=== PATIENT | male | born 1980 | race Caucasian/White ===

== ENCOUNTER 2020-06-16 00:24 | Emergency (ER) | payer OTHER, SELFPAY ==
--- NOTE | ~2020-06-16 | XR_ITS ---
EXAMINATION: XR chest 1V portable 06/16/2020 01:21 INDICATION: Cough and congestion for 2 days PROCEDURE: Chest COMPARISON: No prior studies for comparison. FINDINGS: The lungs are clear. The cardiomediastinal silhouette is within normal limits. There are no pleural effusions. There is no pneumothorax suspected. IMPRESSION: 1: NO ACUTE CARDIOPULMONARY DISEASE. Reviewed, dictated and finalized at location A. LEAD
[2020-06-16 00:30] VITALS: BP 146/82; PULSE 108; RESP 20; TEMP 36.4; O2SAT 97
--- NOTE | 2020-06-16 00:46 | ED.URI ---
HPI - URI/Sore Throat General Chief Complaint: Upper Respiratory Infection Stated Complaint: chest congestion Time Seen by Provider: 06/16/20 00:27 Source: RN notes reviewed History of Present Illness HPI Narrative: Patient presents emergency department from home for upper respiratory infection. Patient states symptoms began 2 days ago. He states he had generalized myalgias with episodes of chills and subjective fever with sweating. States that those episodes lasted until this morning and have improved he states that today he has developed upper respiratory congestion with a cough that is been nonproductive as well as rhinorrhea he denies any sore throat chest pain shortness of breath abdominal pain nausea vomiting diarrhea or any other symptoms he states his evening became concerned because he thought his lips appeared blue in color states he does have a history of anxiety and has been anxious about Covid Related Data Allergies Allergy/AdvReac Type Severity Reaction Status Date / Time No Known Allergies Allergy Mild Unverified 06/16/20 00:45 Review of Systems Review of Systems: Narrative: Gen.: Denies fevers or chills Eyes: Denies eye pain or visual change ENT: Reports congestion Respiratory: Denies shortness of breath reports cough CV: Denies chest pain or palpitations GI: Denies abdominal pain nausea, emesis or diarrhea Musculoskeletal: Denies back pain or muscle pain Neuro: Denies numbness, tingling, weakness or focal weakness Skin: Denies rash Except as documented, all other systems reviewed and negative [facility] Past Medical History Medical History (Updated 06/16/20 @ 02:37 by Gil Villaseñor DO) Depression with anxiety Family History Family History Grandparent Acute myocardial infarction, Onset Age: 74 Family history unknown, Onset Age: 84 Mother Family history of chronic obstructive pulmonary disease Father Malignant neoplasm of prostate Social History Social History Smoking status: Never smoker Second hand tobacco smoke exposure: No Alcohol intake: current Exam Narrative: Exam Narrative: APPEARANCE: No acute distress, nontoxic, resting in bed EYES: EOMI HEENT: Normocephalic, atraumatic, bilateral turbinates boggy lips are normal in appearance RESPIRATORY: No respiratory distress Clear to auscultation bilaterally with no rhonchi wheezing or rales. CARDIOVASCULAR: Regular rate and rhythm without murmurs rubs or gallops. ABDOMINAL: Soft, nontender, nondistended, no rebound or guarding MUSCULOSKELETAl: Moves all extremities. No clubbing, cyanosis or edema. NEURO: Awake and alert. Following commands, speech normal, no focal deficits SKIN:: Warm, dry. No rashes lesions or abrasions PSYCHIATRIC: Normal affect/mood, Course Course Emergency Course: Discussed with patient results of workup and diagnosis. Discussed need for follow-up with primary care, proper use of medication, and reasons to return to the emergency department. Patient understands and agrees to current treatment plan Vital Signs Vital signs: Vital Signs Temperature 97.5 F L 06/16/20 00:30 Pulse Rate 108 H 06/16/20 00:30 Respiratory Rate 20 06/16/20 00:30 Blood Pressure 146/82 H 06/16/20 00:30 Pulse Oximetry 97 06/16/20 00:30 Temperature 97.5 F L 06/16/20 00:30 Pulse Rate 108 H 06/16/20 00:30 Respiratory Rate 20 06/16/20 00:30 Blood Pressure 146/82 H 06/16/20 00:30 Pulse Oximetry 97 06/16/20 00:30 MDM - URI/Sore Throat MDM Narrative Medical decision making narrative: Patient presents with upper respiratory infections symptoms for the past 3 days influenza swab negative in ED chest x-ray shows no acute process and patient with O2 sats on room air in the upper 90s Covid swab obtained will send home with inhaler with follow-up as an outpatient Lab Data Labs: Lab Results 06/16
[2020-06-16 02:36] VITALS: BP 140/87; PULSE 89; RESP 22; O2SAT 98
[2020-06-16 16:41] LABS: SARS-CoV-2 RNA PCR Negative
== END 2020-06-16 02:50 | disposition home or self-care (01) ==
PROVIDERS: Emergency Provider Emergency Medicine; PCP Internal Medicine
DX: R05 Cough (principal); R09.89 Other specified symptoms and signs involving the circulatory and respiratory systems; Z20.828 Contact with and (suspected) exposure to other viral communicable diseases
CPT/HCPCS: 71045; 87635; 87804; 99283; C9803; U0003

== ENCOUNTER 2020-09-19 08:03 | Emergency (ER) | payer OTHER, SELFPAY ==
[2020-09-19 08:11] VITALS: BP 145/82; PULSE 87; RESP 20; TEMP 36.3; O2SAT 100
--- NOTE | 2020-09-19 08:21 | ED.MALEGU ---
HPI - Male Genitourinary General Chief complaint: Urogenital-Male Stated complaint: URINARY URGENCY/BLOOD IN URINE Time Seen by Provider: 09/19/20 08:20 Source: patient and RN notes reviewed Mode of arrival: ambulatory Limitations: no limitations History of Present Illness HPI Narrative: 40-year-old male presents with concern for hematuria, urgency, frequency. Reports burning pain at the tip of his penis. Reports cloudy urine. Reports one episode of mild abdominal pain overnight. He reports symptoms started around midnight. Reports he took Tylenol which mildly relieved the symptoms. He denies testicular swelling, pain, redness. Denies fever, malaise, chills, sweats, current abdominal pain, flank pain. Denies any history of similar problems MD Complaint: other (urgency) Related Data Allergies Allergy/AdvReac Type Severity Reaction Status Date / Time No Known Allergies Allergy Mild Unverified 09/19/20 08:14 Review of Systems Review of Systems: Narrative: CONSTITUTIONAL: Denies malaise, chills, sweats, or fever. CARDIOVASCULAR: Denies chest pain, palpitations, or edema. RESPIRATORY: Denies cough or dyspnea. GASTROINTESTINAL: Denies abdominal pain, nausea, vomiting, diarrhea, bloody, or mucous stools. GENITOURINARY: Reports dysuria frequency, urgency, hematuria, urethral burning without voiding. MUSCULOSKELETAL: Denies back pain, joint pain, or myalgia. NEUROLOGIC: Denies headache. All systems reviewed & are unremarkable except as noted in HPI and below PMFSH Past Medical History Medical History (Updated 09/19/20 @ 08:30 by Mattie Giron NP) Depression with anxiety Family History Family History Grandparent Acute myocardial infarction, Onset Age: 74 Family history unknown, Onset Age: 84 Mother Family history of chronic obstructive pulmonary disease Father Malignant neoplasm of prostate Social History Social History Smoking status: Never smoker Second hand tobacco smoke exposure: No Alcohol intake: current Comments At time of signature, agree with nursing past medical, surgical, social and family history. There is no relevant family history pertinent to the presenting complaint Exam Narrative: Exam Narrative: GENERAL: Well-appearing, well-nourished, and in no acute distress. HEAD: Normocephalic. EYES: PERRLA, conjunctivae clear. NECK: Supple. CHEST: Speaks in full sentences. No respiratory distress. HEART: Regular rate and rhythm. SKIN: Warm, dry NEURO: Alert and oriented x3. PSYCH: Normal mood and affect Course Course Emergency Course: Patient is aware of diagnosis, understands and agrees to treatment plan. Anticipatory guidance given. Patient agrees to follow-up as directed and is aware of reasons to seek care at the emergency department. Portions of this record may have been created with voice recognition software Vital Signs Vital signs: Vital Signs Temperature 97.4 F L 09/19/20 08:11 Pulse Rate 87 09/19/20 08:11 Respiratory Rate 20 09/19/20 08:11 Blood Pressure 145/82 H 09/19/20 08:11 Pulse Oximetry 100 09/19/20 08:11 Temperature 97.4 F L 09/19/20 08:11 Pulse Rate 87 09/19/20 08:11 Respiratory Rate 20 09/19/20 08:11 Blood Pressure 145/82 H 09/19/20 08:11 Pulse Oximetry 100 09/19/20 08:11 Reviewed. Pt has been instructed to follow up with his primary care provider within the next week regarding his elevated blood pressure today. MDM - Male Genitourinary MDM Narrative Medical decision making narrative: Exam findings and UA show no acute concerns or changes; patient is non-toxic appearing and is in no distress. Patient is appropriate for outpatient treatment and follow-up. Differential Diagnosis Differential diagnosis: Likely urinary tract infection, urethritis, epididymitis and prostatitis Lab Data Labs: Urine Glucose
== END 2020-09-19 08:35 | disposition home or self-care (01) ==
PROVIDERS: Emergency Provider Nurse Practitioner; PCP Internal Medicine
DX: N41.0 Acute prostatitis (principal)
CPT/HCPCS: 81003; 87086; 99213; G0463

== ENCOUNTER 2020-09-30 11:12 | Outpatient (CLI) | payer OTHER, SELFPAY | END 2020-09-30 11:13 | disposition home or self-care (01) | LOC: ANHCOVIDVC 11:12 | PROVIDERS: PCP Internal Medicine | DX: Z23 Encounter for immunization (principal) | CPT/HCPCS: 0001A; 91300 ==

== ENCOUNTER 2020-10-21 11:14 | Outpatient (CLI) | payer OTHER, SELFPAY | END 2020-10-21 11:15 | disposition home or self-care (01) | LOC: ANHCOVIDVC 11:14 | PROVIDERS: PCP Internal Medicine | DX: Z23 Encounter for immunization (principal) | CPT/HCPCS: 0002A; 91300 ==

== ENCOUNTER 2020-12-06 08:58 | Emergency (ER) | payer OTHER, SELFPAY ==
[2020-12-06 09:39] VITALS: BP 124/69; PULSE 88; RESP 16; TEMP 36.5; O2SAT 98
--- NOTE | 2020-12-06 10:03 | ED.WOUNDLAC ---
HPI - Wound/Laceration General Chief Complaint: Wound/Laceration Stated Complaint: Thigh Lac Time Seen by Provider: 12/06/20 10:03 Source: patient Mode of arrival: ambulatory Limitations: no limitations History of Present Illness HPI narrative: Mychal Holly is a 40 yo male with GERD who comes to [facility] with a right thigh wound from dropping X-Acto knife on leg and right knee was swollen this morning. He did not wash the cut at the time and said bleeding stopped in a couple minutes -today he has some thigh pain distal to the entry point but there is no induration; he also is in need of a tetanus shot Related Data Allergies Allergy/AdvReac Type Severity Reaction Status Date / Time No Known Allergies Allergy Mild Unverified 09/19/20 08:14 Review of Systems Review of Systems: Narrative: CONSTITUTIONAL: Denies fever, chills, sweats. EYES: Denies visual changes, redness, discharge. ENT: Denies rhinorrhea, congestion, sore throat, otalgia. CARDIOVASCULAR: Denies chest pain, palpitations, edema. RESPIRATORY: Denies dyspnea, wheezing, cough GASTROINTESTINAL: Denies abdominal pain, nausea, vomiting, diarrhea. GENITOURINARY: Denies dysuria, hematuria, abnormal discharge SKIN: Denies rash or itching. Wound on right thigh from X-Acto knife, right knee swelling NEUROLOGIC: Denies numbness, or focal weakness. PSYCHIATRIC: Denies anxiety or depression. PMFSH Past Medical History Medical History Depression with anxiety Family History Family History Grandparent Acute myocardial infarction, Onset Age: 74 Family history unknown, Onset Age: 84 Mother Family history of chronic obstructive pulmonary disease Father Malignant neoplasm of prostate Social History Social History Smoking status: Never smoker Second hand tobacco smoke exposure: No Alcohol intake: never Substance use: never Substance use type: does not use Spiritual care concerns: No Comments At time of signature, I agree with nursing past medical, surgical, social and family history. There is no relevant family history pertinent to the presenting complaint. Exam Narrative: Exam Narrative: GENERAL: This is a well-nourished, well-developed patient, in mild distress. HEAD: normocephalic, atraumatic. EYES: PERRL. Sclera clear/white. Vision is grossly intact. EARS: External ears normal. Hearing grossly intact. NOSE: External nose normal without nasal discharge, nares without redness, no rhinorrhea. THROAT: Mucous membranes moist, NECK: Neck supple, non-tender CARDIOVASCULAR: Regular rate and rhythm without murmurs, gallops, or rubs. RESPIRATORY: Clear to auscultation. Breath sounds equal bilaterally. No wheezes, rales, or rhonchi. GASTROINTESTINAL: Abdomen soft, SKIN: warm, intact with no suspicious lesions or rash, good texture and turgor. Small less than a centimeter superficial cut to the right leg with no induration but complaining of leg pain distal to the entry, good pulses good flexion extension of the leg NEURO: awake, alert, and oriented to person, place and time. There were no obvious focal neurologic abnormalities. Steady gait EXTREMITIES: Normal range of motion. BACK: Nontender without deformity Course Course Emergency Course: Patient comes to [facility] after dropping his XKnife on leg while doing a hobby last night he did not wash it immediately and is in need of tetanus booster Started on Keflex as well as given tetanus Vital Signs Vital signs: Vital Signs Temperature 97.7 F 12/06/20 09:39 Pulse Rate 88 12/06/20 09:39 Respiratory Rate 16 12/06/20 09:39 Blood Pressure 124/69 12/06/20 09:39 Pulse Oximetry 98 12/06/20 09:39 Temperature 97.7 F 12/06/20 09:39 Pulse Rate 88 12/06/20 09:39 Respiratory Rate 16 12/06/20 09:39
[2020-12-06] MEDS: TETANUS,DIPHTHERIA,AC PERTUSSIS ADULT (0.5 ML) BOOSTRIX IM (10:17)
== END 2020-12-06 10:24 | disposition home or self-care (01) ==
PROVIDERS: Emergency Provider Nurse Practitioner; PCP Internal Medicine
DX: S70.311A Abrasion, right thigh, initial encounter (principal); W26.0XXA Contact with knife, initial encounter; Z23 Encounter for immunization
CPT/HCPCS: 90471; 90715; 99213; G0463

== ENCOUNTER 2020-12-09 22:39 | Emergency (ER) | payer OTHER, SELFPAY ==
--- NOTE | ~2020-12-09 | US_ITS ---
EXAMINATION: US scrotum doppler DATE: 12/10/2020 00:13 INDICATION: Left scrotal pain TECHNIQUE: Testicular sonogram utilizing grayscale and Doppler COMPARISON: None. FINDINGS: The right testis measures 3.9 x 2.2 x 2.8 cm. The left testis measures 3.5 x 2.1 x 2.6 cm. There is normal vascular flow to both testes. The right epididymis is normal with normal vascular shen w. The left epididymis is normal with normal vascular flow. There is no varicocele or hydrocele. IMPRESSION: 1. No sonographic correlate for the patient's symptoms. Reviewed, dictated and finalized at location A.
--- NOTE | ~2020-12-09 | CT_ITS ---
EXAMINATION: CT abdomen pelvis wo con DATE: 12/09/2020 23:26 INDICATION: Groin and testicular pain TECHNIQUE: Computed tomography (CT) of the abdomen and pelvis was performed without intravenous contr ast. The dose-length product (DLP) was 1468.67 mGy-cm. Automated exposure control and iterative recon struction technique were employed. COMPARISON: 09/04/2008 FINDINGS: Calcified pulmonary nodules and calcified right hilar lymph nodes are consistent with old g ranulomatous disease. The heart size is normal. There is chronic mild atelectasis of the right lower lobe. Punctate calcifications in otherwise normal appearing liver and spleen likely represent healed granulomatous disease. The pancreas, gallbladder, and adrenal glands are normal. There is a 7 mm cyst of the right kidney. A 7 mm hemorrhagic cyst is present in the lower pole of the right kidney the le ft kidney is unremarkable. No pathologically enlarged abdominal or pelvic lymph nodes are identified. There is no free intraperitoneal gas or evidence of bowel obstruction. There is a 2 mm calcification in the left posterolateral aspect of the bladder. There is a tiny fat-containing umbilical hernia. M ild lumbar spondylosis is noted. The appendix is normal. IMPRESSION: 1. 2 mm calcification in the urinary bladder which could reflect recently passed stone. Reviewed, dictated and finalized at location A. IMPRESSION: 1. 2 mm calcification in the urinary bladder which could reflect recently passe d stone.
[2020-12-09 22:41] VITALS: BP 129/84; PULSE 83; RESP 16; TEMP 36.3; O2SAT 98
--- NOTE | 2020-12-09 23:14 | ED.GENADULT ---
HPI - General Adult General Chief complaint: Unspecified Stated complaint: testicle pain Time Seen by Provider: 12/09/20 23:09 Source: patient Mode of arrival: ambulatory Limitations: no limitations History of Present Illness HPI narrative: Patient is a 40-year-old male complaining of left testicular pain, intermittent, 5 out of 10 that started today. Patient denies any trauma to the area. Patient denies any swelling or redness to the area. Patient denies any urinary symptoms, fever or chills. Related Data Allergies Allergy/AdvReac Type Severity Reaction Status Date / Time No Known Allergies Allergy Mild Unverified 12/09/20 22:48 Review of Systems Review of Systems: All systems reviewed & are unremarkable except as noted in HPI and below Constitutional: Constitutional: Denies body ache(s), Denies chills, Denies excessive sweating, Denies fatigue, Denies fever(s), Denies headache(s), Denies lethargy, Denies malaise, Denies weakness and Denies weight loss Eyes: Eyes: Denies blurry vision, Denies change in vision and Denies loss of vision ENT: Denies dizziness, Denies ear discharge, Denies headache(s), Denies lip swelling, Denies epistaxis, Denies nasal congestion, Denies neck pain, Denies throat swelling and Denies tongue swelling Cardiovascular: Cardiovascular: Denies chest pain, Denies chest pain at rest, Denies chest pain with activity, Denies diaphoresis, Denies rapid heart rate, Denies edema, Denies irregular heart rhythm, Denies lightheadedness, Denies palpitations, Denies dyspnea and Denies dyspnea on exertion Respiratory: Respiratory: Denies chest congestion, Denies cough, Denies hemoptysis, Denies dyspnea and Denies dyspnea on exertion Gastrointestinal: Gastrointestinal: Denies abdominal pain, Denies melena, Denies hematochezia, Denies diarrhea, Denies nausea, Denies vomiting and Denies hematemesis Musculoskeletal: Musculoskeletal: Denies abnormal gait, Denies deformity, Denies joint swelling, Denies limited range of motion, Denies neck pain and Denies numbness Neurologic: Denies Abnormal speech present, Denies abnormal gait, Denies confusion, Denies dizziness, Denies headache(s), Denies focal weakness, Denies loss of vision, Denies numbness, Denies Other visual disturbances, Denies Sensory deficit (Neuro) and Denies weakness Psychiatric: Psychiatric: Denies confusion, Denies depression, Denies auditory hallucinations, Denies homicidal ideation and Denies suicidal ideation Endocrine: Endocrine: Denies cold intolerance, Denies excessive sweating, Denies fatigue, Denies heat intolerance and Denies palpitations Hematologic/Lymphatic: Hematologic/Lymphatic: Denies easy bleeding and Denies easy bruising Allergic/Immunologic: Allergic/Immunologic: Denies lip swelling, Denies throat swelling and Denies tongue swelling PMFSH Past Medical History Medical History Depression with anxiety Family History Family History Grandparent Acute myocardial infarction, Onset Age: 74 Family history unknown, Onset Age: 84 Mother Family history of chronic obstructive pulmonary disease Father Malignant neoplasm of prostate Social History Social History Smoking status: Never smoker Second hand tobacco smoke exposure: No Alcohol intake: never Substance use: never Substance use type: does not use Spiritual care concerns: No Exam Const: General: cooperative, healthy appearing, comfortable, no acute distress, well developed, alert and awake; No confusion Orientation/consciousness: oriented to person, oriented to place, oriented to time, patient oriented x3 and No confusion Limitations: no limitations HENMT: Head: normal to inspection, normocephalic and atraumatic Ears: hearing grossly normal bilaterally, TM normal on the right and TM normal on t
[2020-12-10 00:08] LABS: Basophils Absolute Auto 0.1 K/mm3 (0.0-0.1); Basophils Percent Auto 0.7 % (0.2-1.2); Eosinophils Absolute Auto 0.2 K/mm3 (0-0.3); Eosinophils Percent Auto 2.3 % (0-4.4); Hematocrit 43.7 % (42.0-52.0); Hemoglobin 14.6 g/dL (14.0-18.0); Immature Granulocyte Absolute 0.03 K/mm3 (0.00-0.031); Immature Granulocyte Percent A 0.3 % (0-0.5); Lymphocytes Absolute Auto 2.39 K/mm3 (0.9-3.2); Lymphocytes Percent Auto 26.4 % (18.3-44.2); Mean Corpuscular HGB Conc 33.4 g/dl (32-36); Mean Corpuscular Hemoglobin 26.2 pg (26-34); Mean Corpuscular Volume 78.5 fl (80-100); Mean Platelet Volume 11.9 fl (7.4-10.4); Monocytes Absolute Auto 0.6 K/mm3 (0.1-0.6); Monocytes Percent Auto 6.5 % (2.6-8.5); Neutrophils Absolute Auto 5.8 K/mm3 (1.3-6.7); Neutrophils Percent Auto 63.8 % (45.5-73.1); Platelet Count Result 297 k/mm3 (150-375); Red Blood Count 5.57 M/mm3 (4.6-6.20); Red Cell Distribution Width 16.4 % (11.5-14.5)
[2020-12-10 00:09] LABS: Add Urine Microscopic? NO; Appearance Urine Clear (Clear); Bilirubin Urine Negative (Negative); Blood Urine Negative (Negative); Color Urine Yellow (Yellow); Glucose Urine UA Negative (Negative); Ketones Urine Negative (Negative); Leukocyte Esterase Ur Negative LEU/UL (Negative); Nitrate Urine Negative (Negative); Protein Urine Negative (Negative); Specific Grav Ur 1.013 (1.001-1.035); Urobilinogen Urine Negative mg/dL (<2.0)
[2020-12-10 00:22] LABS: Anion Gap 10 mmol/L (8-16); Blood Urea Nitrogen 13 mg/dL (9-20); Calcium 9.4 mg/dL (8.4-10.2); Carbon Dioxide 24 mmol/L (22-30); Chloride 106 mmol/L (98-107); Estimated CRCL calculation 123 ml/min; Estimated Glomerular Filt Rate > 60; Glucose 82 mg/dL (75-110); Sodium 140 mmol/L (137-145)
[2020-12-10 00:29] VITALS: BP 128/78; PULSE 88; RESP 18; O2SAT 100
[2020-12-10 00:56] VITALS: BP 126/78; RESP 20; O2SAT 100
--- NOTE | 2020-12-11 04:03 | ED.GENADULT ---
HPI - General Adult General Chief complaint: Unspecified Stated complaint: testicle pain Time Seen by Provider: 12/09/20 23:09 Source: patient Mode of arrival: ambulatory Limitations: no limitations Related Data Allergies Allergy/AdvReac Type Severity Reaction Status Date / Time No Known Allergies Allergy Mild Unverified 12/09/20 22:48 [facility] Past Medical History Medical History Depression with anxiety Family History Family History Grandparent Acute myocardial infarction, Onset Age: 74 Family history unknown, Onset Age: 84 Mother Family history of chronic obstructive pulmonary disease Father Malignant neoplasm of prostate Social History Social History Smoking status: Never smoker Second hand tobacco smoke exposure: No Alcohol intake: never Substance use: never Substance use type: does not use Spiritual care concerns: No Course Vital Signs Vital signs: Vital Signs Temperature 36.3 C L 12/09/20 22:41 Pulse Rate 83 12/09/20 22:41 Respiratory Rate 16 12/09/20 22:41 Blood Pressure 129/84 12/09/20 22:41 Pulse Oximetry 98 12/09/20 22:41 Temperature 36.3 C L 12/09/20 22:41 Pulse Rate 88 12/10/20 00:29 Respiratory Rate 20 12/10/20 00:56 Blood Pressure 126/78 12/10/20 00:56 Pulse Oximetry 100 12/10/20 00:56 Medical Decision Making Vital Signs Vital Signs: Vital Signs Temperature 36.3 C L 12/09/20 22:41 Pulse Rate 83 12/09/20 22:41 Respiratory Rate 16 12/09/20 22:41 Blood Pressure 129/84 12/09/20 22:41 Pulse Oximetry 98 12/09/20 22:41 Temperature 36.3 C L 12/09/20 22:41 Pulse Rate 88 12/10/20 00:29 Respiratory Rate 20 12/10/20 00:56 Blood Pressure 126/78 12/10/20 00:56 Pulse Oximetry 100 12/10/20 00:56 Lab Data Result diagrams: 12/09/20 23:44 12/09/20 23:43 Labs: Lab Results 12/09/20 12/09/20 12/09/20 Range/Units 23:43 23:44 23:44 WBC 9.0 (4.5-10.0) K/mm3 RBC 5.57 (4.6-6.20) M/mm3 Hgb 14.6 (14.0-18.0) g/dL Hct 43.7 (42.0-52.0) % MCV 78.5 L (80-100) fl MCH 26.2 (26-34) pg MCHC 33.4 (32-36) g/dl RDW 16.4 H (11.5-14.5) % Plt Count 297 (150-375) k/mm3 MPV 11.9 H (7.4-10.4) fl Immature Gran % (Auto) 0.3 (0-0.5) % Neut % (Auto) 63.8 (45.5-73.1) % Lymph % (Auto) 26.4 (18.3-44.2) % [place] % (Auto) 6.5 (2.6-8.5) % Eos % (Auto) 2.3 (0-4.4) % Baso % (Auto) 0.7 (0.2-1.2) % Lymph # (Auto) 2.39 (0.9-3.2) K/mm3 [place] # (Auto) 0.6 (0.1-0.6) K/mm3 Eos # (Auto) 0.2 (0-0.3) K/mm3 Baso # (Auto) 0.1 (0.0-0.1) K/mm3 Abs Immat Gran (auto) 0.03 (0.00-0.031) K/mm3 Absolute Neuts (auto) 5.8 (1.3-6.7) K/mm3 Absolute Nucleated RBC 0.0 (0.0-0.012) K/mm3 Nucleated RBC % 0.0 (0.0-0.2) % Sodium 140 (137-145) mmol/L Potassium 4.0 (3.4-5.0) mmol/L Chloride 106 (98-107) mmol/L Carbon Dioxide 24 (22-30) mmol/L Anion Gap 10 (8-16) mmol/L BUN 13 (9-20) mg/dL Creatinine 1.00 (0.7-1.3) mg/dL Estim Creat Clear Calc 123 ml/min Estimated GFR > 60 (59 - ) Glucose 82 (75-110) mg/dL Calcium 9.4 (8.4-10.2) mg/dL Urine Color Yellow (Yellow) Urine Appearance Clear (Clear) Urine pH 6.0 (5.0-9.0) Ur Specific [place] 1.013 (1.001-1.035) Urine Protein Negative (Negative) mg/dL Urine Glucose (UA) Negative (Negative) mg/dL Urine Ketones Negative (Negative) mg/dL Ur Blood (Man) Negative (Negative) Urine Nitrate Negative (Negative) Urine Bilirubin Negative (Negative) Urine Urobilinogen Negative (<2.0) mg/dL Leukocyte Esterase Rfl Negative (Negative) MAURO/UL Discharge Plan Discharge Clinical Impression: Pain in scrot
== END 2020-12-10 00:59 | disposition home or self-care (01) ==
PROVIDERS: Emergency Provider Emergency Medicine; PCP Internal Medicine
DX: N50.812 Left testicular pain (principal); F32.9 Major depressive disorder, single episode, unspecified; F41.9 Anxiety disorder, unspecified
CPT/HCPCS: 36415; 74176; 76870; 80048; 81003; 85025; 93976; 99284

== ENCOUNTER 2020-12-15 01:49 | Emergency (ER) | payer OTHER, SELFPAY ==
[2020-12-15 01:52] VITALS: BP 128/84; PULSE 97; RESP 16; TEMP 36.1; O2SAT 96
--- NOTE | 2020-12-15 02:14 | PC.NURSE ---
ERP in room performing bedside US on patient's RLE.
--- NOTE | 2020-12-15 02:21 | ED.EXTPRO ---
HPI - Extremity Problem General Chief complaint: Extremity Problem,Nontraumatic Stated complaint: foot pain tonight Time Seen by Provider: 12/15/20 01:56 History of Present Illness HPI Narrative: Right foot pain since earlier this evening. Started suddenly. Thought he felt a lump on the bottom of his foot, which is no longer there. The pain has mostly resolved, but now has [id number] sensation. No swelling, fever, injury. Related Data Allergies Allergy/AdvReac Type Severity Reaction Status Date / Time No Known Allergies Allergy Mild Unverified 12/09/20 22:48 Review of Systems Review of Systems: All systems reviewed & are unremarkable except as noted in HPI and below Constitutional: Constitutional: Denies fever(s) Cardiovascular: Cardiovascular: Denies chest pain Respiratory: Respiratory: Denies dyspnea Gastrointestinal: Gastrointestinal: Denies vomiting Musculoskeletal: Musculoskeletal: Denies back pain Neurologic: Denies dizziness, Denies numbness and Denies weakness PMFSH Past Medical History Medical History Depression with anxiety Family History Family History Grandparent Acute myocardial infarction, Onset Age: 74 Family history unknown, Onset Age: 84 Mother Family history of chronic obstructive pulmonary disease Father Malignant neoplasm of prostate Social History Social History Smoking status: Never smoker Second hand tobacco smoke exposure: No Alcohol intake: never Substance use: never Substance use type: does not use Spiritual care concerns: No Exam Const: General: no acute distress and alert Orientation/consciousness: patient oriented x3 HENMT: Head: normal to inspection Resp: Effort & Inspection: normal respiratory effort Auscultation: clear to auscultation bilaterally Cardio: Rate: regular rate Rhythm: regular rhythm Neuro: General: patient oriented x3 and moves all extremities Speech: normal speech Gait exam (Neuro): Normal gait present Extrem: General: normal to inspection and no edema Other: 2+ right DP and PT Psych: Affect: Anxious affect present Course Vital Signs Vital signs: Vital Signs Temperature 36.1 C L 12/15/20 01:52 Pulse Rate 97 12/15/20 01:52 Respiratory Rate 16 12/15/20 01:52 Blood Pressure 128/84 12/15/20 01:52 Pulse Oximetry 96 12/15/20 01:52 Temperature 36.1 C L 12/15/20 01:52 Pulse Rate 97 12/15/20 01:52 Respiratory Rate 16 12/15/20 01:52 Blood Pressure 128/84 12/15/20 01:52 Pulse Oximetry 96 12/15/20 01:52 MDM - Extremity (Nontraumatic) MDM Narrative Medical decision making narrative: benign exam. Discharge Plan Discharge Clinical Impression: Sciatica of right side Patient Disposition: Home, Self-Care Condition: Stable Instructions: Sciatica (ED) Prescriptions: New cyclobenzaprine 10 mg tablet 10 mg PO TID PRN (Reason: sciatica) Qty: 20 RF: 0 No Action cephalexin 500 mg capsule 500 mg PO Q8H Qty: 30 RF: 0 metronidazole 0.75 % gel 1 applic topical BID Qty: 45 RF: 4 omeprazole 20 mg capsule,delayed release(DR/EC) 20 mg PO DAILY Qty: 90 RF: 3 Follow-up/Referrals: Fredy Perry MD [Primary Care Provider] -
[2020-12-15] MEDS: KETOROLAC (*BKC) 60 MG/2 ML VIAL IM (02:26)
== END 2020-12-15 02:42 | disposition home or self-care (01) ==
LOC: ANHED 02:29
PROVIDERS: Emergency Provider Emergency Medicine; PCP Internal Medicine
DX: M54.31 Sciatica, right side (principal)
CPT/HCPCS: 96372; 99283; J1885

== ENCOUNTER 2021-03-12 18:24 | Emergency (ER) | payer OTHER, SELFPAY ==
[2021-03-12 18:29] VITALS: BP 144/92; PULSE 88; RESP 12; TEMP 36.7; O2SAT 100
--- NOTE | 2021-03-12 18:43 | ED.SKABFB ---
HPI - Skin/Abscess/Foreign Bdy General Chief complaint: Skin/Abscess/Foreign Body Stated complaint: RASH Time Seen by Provider: 03/12/21 18:40 Source: patient Mode of arrival: ambulatory Limitations: no limitations History of Present Illness HPI narrative: Mychal Solis is a 41 yo male with GERD, and rosacea who [facility] with complaints of a small red rash under his right axilla that he is concerned about being shingles. He states that he thought it might be shingles because he feels some burning in his arm but he is also on doxy and has been out of the sun. He is losing weight and the and discussed with tattooing of his right arm and there appears to be a red rash around the upper part of the tattoo looks very similar to what is under his arm in the axilla-oh 2 days ago He is very anxious Related Data Home Medications Medication Instructions Recorded Confirmed doxycycline monohydrate 03/12/21 Allergies Allergy/AdvReac Type Severity Reaction Status Date / Time No Known Allergies Allergy Mild Verified 03/12/21 18:29 Review of Systems Review of Systems: CONSTITUTIONAL: Denies fever, chills, sweats. EYES: Denies visual changes, redness, discharge. ENT: Denies rhinorrhea, congestion, sore throat, otalgia. CARDIOVASCULAR: Denies chest pain, palpitations, edema. RESPIRATORY: Denies dyspnea, wheezing, cough GASTROINTESTINAL: Denies abdominal pain, nausea, vomiting, diarrhea. GENITOURINARY: Denies dysuria, hematuria, abnormal discharge SKIN: Rash in right axilla that he is concerned is shingles-started 2 days ago NEUROLOGIC: Denies numbness, or focal weakness. PSYCHIATRIC: Denies anxiety or depression. [facility] Past Medical History Medical History Acne rosacea Chronic GERD Depression with anxiety Family History Family History Grandparent Acute myocardial infarction, Onset Age: 74 Family history unknown, Onset Age: 84 Mother Family history of chronic obstructive pulmonary disease Father Malignant neoplasm of prostate Other High cholesterol Social History Social History Smoking status: Never smoker Second hand tobacco smoke exposure: No Alcohol intake: never Substance use: never Substance use type: does not use Spiritual care concerns: No Comments At time of signature, I agree with nursing past medical, surgical, social and family history. There is no relevant family history pertinent to the presenting complaint. Exam Narrative: GENERAL: This is a well-nourished, well-developed patient, in mild distress. Very anxious HEAD: normocephalic, atraumatic. EYES: Sclera clear/white. Vision is grossly intact. EARS: External ears normal, Hearing grossly intact. NOSE: External nose normal without nasal discharge, nares without redness, no rhinorrhea. THROAT: Mucous membranes moist, NECK: Neck supple, CARDIOVASCULAR: Regular rate and rhythm without murmurs, gallops, or rubs. RESPIRATORY: Clear to auscultation. Breath sounds equal bilaterally. No wheezes, rales, or rhonchi. GASTROINTESTINAL: Abdomen soft, SKIN: warm, intact with new tattoo on right upper deltoid; reddish discoloration around tattoo with a rash appearance in the superior part of the tattoo and small amount of rash on his right axilla,nontender, nonpruritic,. NEURO: awake, alert, and oriented to person, place and time. There were no obvious focal neurologic abnormalities. Steady gait EXTREMITIES: Normal range of motion. BACK: Nontender without deformity Course Course Emergency Course: Patient here for evaluation of small rash under right axilla he is concerned that it might be shingles Rash does not appear to be shingles, discussion he agreed agreed that he would use hydrocortisone around the red area of the tattoo and I would start him o
== END 2021-03-12 19:10 | disposition home or self-care (01) ==
PROVIDERS: Emergency Provider Nurse Practitioner; PCP Internal Medicine
DX: R21 Rash and other nonspecific skin eruption (principal); K21.9 Gastro-esophageal reflux disease without esophagitis
CPT/HCPCS: 99213; G0463

== ENCOUNTER 2021-05-10 16:20 | Emergency (ER) | payer OTHER, SELFPAY ==
[2021-05-10 16:30] VITALS: BP 127/76; PULSE 78; RESP 16; TEMP 36.6; O2SAT 99
--- NOTE | 2021-05-10 17:02 | ED.EXTPRO ---
HPI - Extremity Problem General Chief complaint: Extremity Problem,Nontraumatic Stated complaint: PAIN TO LEFT UPPER RIB AREA/BRUISING Time Seen by Provider: 05/10/21 17:03 Source: patient and RN notes reviewed Mode of arrival: ambulatory Limitations: no limitations History of Present Illness HPI Narrative: 41-year-old male presents with concern for pain to the left chest rib area that radiates into the left axilla and to the underside of the left arm he denies any known injury or trauma. Reports he has a small bruise at the initiation point of the pain. He reports last week he was working out, playing [employer] golf. He reports pain is not made worse by coughing or deep breathing, moving his arm, bending or twisting. He denies any other exacerbating or relieving factors. He reports he has recently been dieting and is concerned about his nutritional status. He denies shortness of breath, nausea, cough, upper respiratory symptoms. Reports he was seen by his doctor last month for mid low back pain and was told it was due to his posture. He denies any new changes or worsening of back pain. He denies interventions for his symptoms. MD Complaint: other (Rib pain) Related Data Allergies Allergy/AdvReac Type Severity Reaction Status Date / Time No Known Allergies Allergy Mild Verified 05/01/21 15:21 Review of Systems Review of Systems: CONSTITUTIONAL: Denies malaise, chills, sweats, or fever. ENT: Denies rhinorrhea, congestion, sinus pain, otalgia or sore throat. CARDIOVASCULAR: Denies chest pain, palpitations, or edema. RESPIRATORY: Denies cough or dyspnea. GASTROINTESTINAL: Denies abdominal pain, nausea, vomiting SKIN: Denies rash or itching. Reports of bruise to the left chest MUSCULOSKELETAL: Denies back pain, joint pain, or myalgia. Reports pain in the left chest/rib area NEUROLOGIC: Denies numbness, weakness All systems reviewed & are unremarkable except as noted in HPI and below [facility] Past Medical History Medical History Acne rosacea Chronic GERD Depression with anxiety Family History Family History Grandparent Acute myocardial infarction, Onset Age: 74 Family history unknown, Onset Age: 84 Mother Family history of chronic obstructive pulmonary disease Father Malignant neoplasm of prostate Other High cholesterol Social History Social History Smoking status: Never smoker Second hand tobacco smoke exposure: No Alcohol intake: never Substance use: never Substance use type: does not use Spiritual care concerns: No Comments At time of signature, agree with nursing past medical, surgical, social and family history. There is no relevant family history pertinent to the presenting complaint Exam Narrative: GENERAL: Well-appearing, well-nourished, and in no acute distress. HEAD: Normocephalic, atraumatic. EYES: PERRLA, sclera clear, and EOMI. No nystagmus. ENT: Mucous membranes moist. NECK: Supple. CHEST: No respiratory distress. Clear to auscultation. No bony deformities, no asymmetry. Speaks in full sentences. HEART: Regular rate and rhythm. No murmur heard. Normal peripheral pulses. EXTREMITIES: Left upper extremity has grossly normal range of motion. No edema. Grossly normal strength and sensation. SKIN: Warm, dry, no visible rash. 4 cm in diameter yellow bruise noted to the left anterior lateral chest above the nipple NEURO: Alert and oriented x3. PSYCH: Normal mood and affect Course Course Emergency Course: Patient is aware of diagnosis, understands and agrees to treatment plan. Anticipatory guidance given. Patient agrees to follow-up as directed and is aware of reasons to seek care at the emergency department. Portions of this record may have been created with voice recognition software Vital Signs Vital signs: Vital Si
--- NOTE | 2021-05-10 17:24 | ECG_ITS ---
Measurements Intervals [place] Rate: 68 P: 21 [place]: 193 QRS: 44 QRSD: 102 T: 40 QT: 376 QTc: 401 Interpretive Statements SINUS RHYTHM BASELINE ARTIFACT- V3 NORMAL ECG Electronically Signed On 05-11-2021 10:47:28 CDT by Romulo Linton D.O.
== END 2021-05-10 17:30 | disposition home or self-care (01) ==
PROVIDERS: Emergency Provider Nurse Practitioner; PCP Internal Medicine
DX: R07.89 Other chest pain (principal); K21.9 Gastro-esophageal reflux disease without esophagitis
CPT/HCPCS: 93005; 99213; G0463

== ENCOUNTER → 2021-05-12 16:20 | Outpatient (CLI) | payer OTHER, SELFPAY ==
--- NOTE | ~2021-05-12 | XR_ITS ---
EXAMINATION: XR shoulder LT min 2V DATE: 05/12/2021 16:32 INDICATION: Left shoulder pain. TECHNIQUE: 4 views of left shoulder were obtained. COMPARISON: None. FINDINGS: Bone alignment is normal. No fracture. There is mild osteoarthritis of acromioclavicular marzena int. Glenohumeral joint is normal. IMPRESSION: 1. Mild acromioclavicular joint osteoarthritis. Reviewed, dictated and finalized at location A.
== END ==
LOC: EXPGRAD 16:22
PROVIDERS: PCP Internal Medicine; Visit Provider Internal Medicine
DX: M19.012 Primary osteoarthritis, left shoulder (principal)
CPT/HCPCS: 73030

== ENCOUNTER 2021-06-17 19:58 | Emergency (ER) | payer OTHER, SELFPAY ==
--- NOTE | ~2021-06-17 | XR_ITS ---
[XR ribs LT 2V w CXR 2V ] INDICATION: Left rib pain TECHNIQUE: Frontal projection of the upper left ribs, frontal projection of the lower left ribs, obli que projection of all the left ribs, frontal inspiratory chest x-ray for interpretation. FINDINGS: There are no displaced rib fractures identified. There are no soft tissue abnormality see n. The lungs are clear. Calcified granuloma right midlung zone. IMPRESSION: 1:No displaced rib fractures. Reviewed, dictated and finalized at location A. FORCING STEEL MACHINE OPERATOR
--- NOTE | ~2021-06-17 | CT_ITS ---
EXAMINATION: CT cervical spine wo con DATE: 06/17/2021 20:54 INDICATION: Neck pain. Paresthesias. TECHNIQUE: Computed tomography (CT) of the cervical spine was performed without intravenous contrast. The dose-length product was 445 mGy-cm. Automated exposure control and iterative reconstruction tech nique were employed. COMPARISON: None FINDINGS: Straightening of cervical lordosis. Vertebral body and disc heights are preserved. No acute fracture, subluxation or dislocation. Odontoid process is normal. Lung apices are normal. No signifi cant spinal stenosis. No paraspinal soft tissue abnormality. IMPRESSION: 1. No significant abnormality of the cervical spine. Reviewed, dictated and finalized at location A. UREMENT COORDINATOR
[2021-06-17 20:03] VITALS: BP 130/83; PULSE 72; RESP 20; TEMP 36.1; O2SAT 100
--- NOTE | 2021-06-17 20:36 | ED.BACK ---
HPI - Back Pain/Injury General Chief Complaint: Back Pain/Injury Stated Complaint: back pain X1 month Time Seen by Provider: 06/17/21 20:29 Source: patient Mode of arrival: ambulatory Limitations: no limitations History of Present Illness HPI Narrative: This is a 41-year-old male who presents to the emergency department for left-sided upper back pain present for the last month. No recent injury or trauma. The pain is worse with certain movements. The pain ranges anywhere from in his neck, mid back, left shoulder, or arm. Today his pain is mostly been in his left upper back. Worse with palpation in the area. He did take an anti-inflammatory prior to arrival which is helped. Denies fever, chest pain, shortness of breath, or lower extremity edema. Related Data Allergies Allergy/AdvReac Type Severity Reaction Status Date / Time No Known Allergies Allergy Mild Verified 05/01/21 15:21 Review of Systems Review of Systems: CONSTITUTIONAL: Denies fever CARDIOVASCULAR: Denies chest pain, or edema. RESPIRATORY: Denies dyspnea. MUSCULOSKELETAL: Reports back pain, joint pain, and myalgia. NEUROLOGIC: Denies numbness, or weakness. All systems reviewed & are unremarkable except as noted in HPI and below PMFSH Past Medical History Medical History Acne rosacea Chronic GERD Depression with anxiety Family History Family History Grandparent Acute myocardial infarction, Onset Age: 74 Family history unknown, Onset Age: 84 Mother Family history of chronic obstructive pulmonary disease Father Malignant neoplasm of prostate Other High cholesterol Social History Social History Smoking status: Never smoker Second hand tobacco smoke exposure: No Alcohol intake: never Substance use: never Substance use type: does not use Spiritual care concerns: No Exam Narrative: GENERAL: Well-appearing, well-nourished, and in no acute distress. HEAD: Normocephalic, atraumatic. EYES: EOMI. NECK: Supple. No adenopathy or masses. CHEST: No respiratory distress. HEART: Regular rate. Normal peripheral pulses. EXTREMITIES: Normal range of motion. No edema or erythema. Strength equal in bilateral upper extremities (5/5) SKIN: Warm, dry, no rash. NEURO: No focal deficits. Alert and oriented x3. PSYCH: Normal mood and affect Course Vital Signs Vital signs: Vital Signs Temperature 97.0 F L 06/17/21 20:03 Pulse Rate 72 06/17/21 20:03 Respiratory Rate 20 06/17/21 20:03 Blood Pressure 130/83 06/17/21 20:03 Pulse Oximetry 100 06/17/21 20:03 Temperature 97.0 F L 06/17/21 20:03 Pulse Rate 72 06/17/21 20:03 Respiratory Rate 20 06/17/21 20:03 Blood Pressure 130/83 06/17/21 20:03 Pulse Oximetry 100 06/17/21 20:03 MDM - Back Pain/Injury MDM Narrative Medical decision making narrative: Patient presents emergency department for left upper back pain present over the last month. Also reporting neck pain radiating down the left arm. He is afebrile and nontoxic-appearing. He is neurovascularly intact. Denies any chest pain or shortness of breath. Patient has had an EKG without acute findings. He has had a left shoulder x-ray which showed some AC joint osteoarthritis. Today left rib/chest film is without acute findings. CT scan of the cervical spine is also without acute findings. Shows muscle spasm. Patient was updated on case findings. He is stable and felt appropriate for further outpatient evaluation. Instructed to follow-up with his primary and orthopedic doctor at scheduled appointment. He was given warnings to return to the ER Imaging Data Radiologist's impression: ITS Impressions Ribs w/Chest X-Ray 06/17/21 20:56 IMPRESSION: 1:No displaced rib fractures. Cervical Spine CT 06/17/21 20:58 IMPRESSION:
[2021-06-17] MEDS: ACETAMINOPHEN 500 MG TABLET 1000 MG PO (20:52)
--- NOTE | 2021-06-17 20:58 | PC.NURSE ---
pt driving unable to give Valium 5mg provider notified
[2021-06-17 21:32] VITALS: BP 128/85; PULSE 75; RESP 18; O2SAT 99
== END 2021-06-17 21:33 | disposition home or self-care (01) ==
PROVIDERS: Emergency Provider Emergency Medicine; PCP Internal Medicine
DX: M62.830 Muscle spasm of back (principal); K21.9 Gastro-esophageal reflux disease without esophagitis
CPT/HCPCS: 71046; 71100; 72125; 99284; A9270

== ENCOUNTER 2021-07-26 21:36 | Emergency (ER) | payer OTHER, SELFPAY ==
--- NOTE | ~2021-07-26 | XR_ITS ---
EXAMINATION: XR chest 2V DATE: 07/26/2021 22:12 INDICATION: Midsternal chest pain. Left chest pain. TECHNIQUE: Frontal and lateral views of the chest were obtained. COMPARISON: Chest 2 views 06/17/2021 FINDINGS: A calcified right lung nodule and calcified right hilar lymph nodes are consistent with old granulomatous disease. No pleural effusion or pneumothorax. The heart size is normal. IMPRESSION: 1. No acute cardiopulmonary disease. Reviewed, dictated and finalized at location A. RUMENT PROCESSING TECH
--- NOTE | 2021-07-26 21:38 | ECG_ITS ---
Measurements Intervals [place] Rate: 64 P: 37 SD: 167 QRS: 47 QRSD: 99 T: 42 QT: 365 QTc: 377 Interpretive Statements SINUS RHYTHM BASELINE ARTIFACT- V1, V3-V6 NORMAL ECG Electronically Signed On 07-27-2021 6:14:42 VENTURE CAPITAL ANALYST by Romulo Linton D.O.
[2021-07-26 21:43] VITALS: BP 155/101; PULSE 72; RESP 19; TEMP 36.4; O2SAT 99
[2021-07-26 21:56] LABS: Basophils Absolute Auto 0.1 K/mm3 (0.0-0.1); Basophils Percent Auto 0.6 % (0.2-1.2); Eosinophils Absolute Auto 0.2 K/mm3 (0-0.3); Eosinophils Percent Auto 2.3 % (0-4.4); Hematocrit 43.6 % (42.0-52.0); Hemoglobin 14.6 g/dL (14.0-18.0); Immature Granulocyte Absolute 0.01 K/mm3 (0.00-0.031); Immature Granulocyte Percent A 0.1 % (0-0.5); Lymphocytes Absolute Auto 1.89 K/mm3 (0.9-3.2); Lymphocytes Percent Auto 24.4 % (18.3-44.2); Mean Corpuscular HGB Conc 33.5 g/dl (32-36); Mean Corpuscular Hemoglobin 28.4 pg (26-34); Mean Corpuscular Volume 84.8 fl (80-100); Mean Platelet Volume 11.1 fl (7.4-10.4); Monocytes Absolute Auto 0.4 K/mm3 (0.1-0.6); Monocytes Percent Auto 5.7 % (2.6-8.5); Neutrophils Absolute Auto 5.2 K/mm3 (1.3-6.7); Neutrophils Percent Auto 66.9 % (45.5-73.1); Platelet Count Result 219 k/mm3 (150-375); Red Blood Count 5.14 M/mm3 (4.6-6.20); Red Cell Distribution Width 15.4 % (11.5-14.5); White Blood Count 7.7 K/mm3 (4.5-10.0)
[2021-07-26 22:01] LABS: Alanine Aminotransferase 24 U/L (4-50); Albumin Level 4.5 g/dL (3.5-5.1); Alkaline Phosphatase 80 U/L (38-126); Anion Gap 9 mmol/L (8-16); Aspartate Amino Transferase 24 U/L (17-59); Bilirubin,Total 0.5 mg/dL (0.2-1.3); Blood Urea Nitrogen 12 mg/dL (9-20); Calcium 9.3 mg/dL (8.4-10.2); Carbon Dioxide 28 mmol/L (22-30); Chloride 102 mmol/L (98-107); Estimated CRCL calculation 111 ml/min; Estimated Glomerular Filt Rate > 60; Glucose 92 mg/dL (65-110); Lipase 112 U/L (23-300); Potassium 3.6 mmol/L (3.4-5.0); Prothrombin Time 13.5 Seconds (11.1-14.7); Sodium 139 mmol/L (137-145)
[2021-07-26 22:13] LABS: Troponin I < 0.012 ng/mL (0.000-0.034)
--- NOTE | 2021-07-26 23:21 | PC.NURSE ---
Patient states he wants to leave, states he is going home to go to bed. Patient advised of risks of leaving without being seen by a provider, patient states he still wants to leave. Patient left ED with his belongings.
== END 2021-07-26 23:35 | disposition left against medical advice (07) ==
LOC: ANHED 23:26
PROVIDERS: Emergency Provider Emergency Medicine
DX: R07.2 Precordial pain (principal)
CPT/HCPCS: 36415; 71046; 80053; 83690; 84484; 85025; 85610; 85730; 93005; 99199

== ENCOUNTER 2021-08-17 00:05 | Emergency (ER) | payer OTHER, SELFPAY ==
--- NOTE | ~2021-08-17 | XR_ITS ---
EXAMINATION: XR chest 2V EXAM DATE: 08/17/2021 00:34 INDICATION: LT Side Neck/Chest Pain. TECHNIQUE: Frontal and lateral projections of the chest obtained and reviewed. Comparison is made to prior examination from 07/26/2021. FINDINGS: Right lower lobe granuloma. The lungs are otherwise clear. There are no pleural effusions . The cardiomediastinal silhouette is within normal limits. There is no pneumothorax suspected. Th e bones and soft tissues are unremarkable. IMPRESSION: No acute cardiopulmonary findings. Reviewed, dictated and finalized at location A. MARKER
--- NOTE | 2021-08-17 00:07 | ECG_ITS ---
Measurements Intervals [place] Rate: 77 P: 55 [place]: 180 QRS: 51 QRSD: 97 T: 56 QT: 360 QTc: 409 Interpretive Statements SINUS RHYTHM BASELINE ARTIFACT- I, II, III, AVR, AVL, V1-V4 NORMAL ECG Electronically Signed On 08-17-2021 6:23:19 PLATE AND WELD INSPECTOR by Romulo Linton D.O.
[2021-08-17 00:13] VITALS: BP 146/83; PULSE 71; RESP 20; TEMP 36.2; O2SAT 100
--- NOTE | 2021-08-17 00:28 | PC.NURSE ---
Patient taken to xray via w/c.
[2021-08-17 00:52] LABS: Basophils Absolute Auto 0.1 K/mm3 (0.0-0.1); Basophils Percent Auto 0.7 % (0.2-1.2); Eosinophils Absolute Auto 0.2 K/mm3 (0-0.3); Eosinophils Percent Auto 2.8 % (0-4.4); Hematocrit 43.9 % (42.0-52.0); Hemoglobin 14.9 g/dL (14.0-18.0); Immature Granulocyte Absolute 0.02 K/mm3 (0.00-0.031); Immature Granulocyte Percent A 0.3 % (0-0.5); Lymphocytes Absolute Auto 2.34 K/mm3 (0.9-3.2); Lymphocytes Percent Auto 31.4 % (18.3-44.2); Mean Corpuscular HGB Conc 33.9 g/dl (32-36); Mean Corpuscular Hemoglobin 28.8 pg (26-34); Mean Corpuscular Volume 84.7 fl (80-100); Mean Platelet Volume 11.9 fl (7.4-10.4); Monocytes Absolute Auto 0.5 K/mm3 (0.1-0.6); Neutrophils Absolute Auto 4.4 K/mm3 (1.3-6.7); Neutrophils Percent Auto 58.8 % (45.5-73.1); Platelet Count Result 264 k/mm3 (150-375); Red Blood Count 5.18 M/mm3 (4.6-6.20); Red Cell Distribution Width 15.5 % (11.5-14.5); White Blood Count 7.5 K/mm3 (4.5-10.0)
[2021-08-17 01:00] LABS: Alanine Aminotransferase 19 U/L (4-50); Albumin Level 4.4 g/dL (3.5-5.1); Alkaline Phosphatase 85 U/L (38-126); Anion Gap 10 mmol/L (8-16); Aspartate Amino Transferase 21 U/L (17-59); Bilirubin,Total 0.5 mg/dL (0.2-1.3); Blood Urea Nitrogen 12 mg/dL (9-20); Calcium 9.5 mg/dL (8.4-10.2); Carbon Dioxide 27 mmol/L (22-30); Chloride 102 mmol/L (98-107); Estimated CRCL calculation 101 ml/min; Estimated Glomerular Filt Rate > 60; Glucose 89 mg/dL (65-110); Lipase 99 U/L (23-300); Potassium 3.9 mmol/L (3.4-5.0); Sodium 139 mmol/L (137-145)
[2021-08-17 01:07] LABS: INR 1.2; Prothrombin Time 14.8 Seconds (11.1-14.7)
[2021-08-17 01:08] LABS: Partial Thromboplastin Time 33.2 SECONDS (22.3-36.8)
[2021-08-17 01:11] LABS: Troponin I < 0.012 ng/mL (0.000-0.034)
[2021-08-17] MEDS: diazePAM INJ (*CRX) 10 MG/2 ML SYRINGE 5 MG IV PUSH (02:14)
--- NOTE | 2021-08-17 02:14 | ED.GENADULT ---
HPI - General Adult General Chief complaint: Chest Pain Stated complaint: Neck pain, chest pain, back pain Time Seen by Provider: 08/17/21 01:47 History of Present Illness HPI narrative: Patient 41-year-old gentleman who presents the emergency department with chief complaint of back and neck pain. Patient reports that he started having pain after he worked out on the left back area medial to his scapula patient states the pain is sharp radiates up into his neck and reports it radiates then down into his left upper extremity. The patient states the pain is worse with movement and improved with rest. Patient states he is a long running issues with pain with his neck and back. The patient reports that he tried using massager without success. Related Data Allergies Allergy/AdvReac Type Severity Reaction Status Date / Time No Known Allergies Allergy Mild Verified 08/17/21 00:16 Review of Systems Review of Systems: A 10 system review of systems was completed on the patient and is negative except for what is stated in the HPI. Nursing and ancillary documentation was reviewed. PMFSH Past Medical History Medical History Acne rosacea Chronic GERD Depression with anxiety Family History Family History Grandparent Acute myocardial infarction, Onset Age: 74 Family history unknown, Onset Age: 84 Mother Family history of chronic obstructive pulmonary disease Father Malignant neoplasm of prostate Other High cholesterol Social History Social History Smoking status: Never smoker Second hand tobacco smoke exposure: No Alcohol intake: never Substance use: never Substance use type: does not use Spiritual care concerns: No Exam Narrative: GENERAL: Well-appearing, well-nourished, and in no acute distress. HEAD: Normocephalic, atraumatic. EYES: PERRLA and EOMI. ENT: Nares clear, no rhinorrhea or epistaxis. Mucous membranes moist. NECK: Supple. CHEST: Clear to auscultation. No respiratory distress. HEART: Regular rate and rhythm. No murmur heard. Normal peripheral pulses. ABDOMEN: Soft, nontender, nondistended, normal active bowel sounds. EXTREMITIES: Normal range of motion. No edema. Back: There is tenderness palpation the paraspinous muscles of the left back medial to the left scapula SKIN: Warm, dry, no rash. NEURO: No focal deficits. Alert and oriented x3. PSYCH: Normal mood and affect. Course Vital Signs Vital signs: Vital Signs Temperature 36.2 C L 08/17/21 00:13 Pulse Rate 71 08/17/21 00:13 Respiratory Rate 20 08/17/21 00:13 Blood Pressure 146/83 H 08/17/21 00:13 Pulse Oximetry 100 08/17/21 00:13 Temperature 36.2 C L 08/17/21 00:13 Pulse Rate 71 08/17/21 00:13 Respiratory Rate 08/17/21 00:13 Blood Pressure 146/83 H 08/17/21 00:13 Pulse Oximetry 100 08/17/21 00:13 Medical Decision Making Vital Signs Vital Signs: Vital Signs Temperature 36.2 C L 08/17/21 00:13 Pulse Rate 71 08/17/21 00:13 Respiratory Rate 08/17/21 00:13 Blood Pressure 146/83 H 08/17/21 00:13 Pulse Oximetry 100 08/17/21 00:13 Temperature 36.2 C L 08/17/21 00:13 Pulse Rate 71 08/17/21 00:13 Respiratory Rate 08/17/21 00:13 Blood Pressure 146/83 H 08/17/21 00:13 Pulse Oximetry 100 08/17/21 00:13 Lab Data Result diagrams: 08/17/21 00:19 08/17/21 00:19 Labs: Lab Results 08/17/21 08/17/21 08/17/21 Range/Units 00:19 00:19 00:19 WBC 7.5 (4.5-10.0) K/mm3 RBC 5.18 (4.6-6.20) M/mm3 Hgb 14.9 (14.0-18.0) g/dL Hct 43.9 (42.0-52.0) % MCV 84.7 (80-100) fl MCH 28.8 (26-34) pg MCHC 33.9 (32-36) g/dl RDW 15.5 H (11.5-14.5) % Plt Count 264 (150-375) k/mm3 MPV 11.9 H (7.4-10.4) fl
[2021-08-17] MEDS: KETOROLAC 30 MG/ML VIAL (*BKC) IV PUSH (02:15)
[2021-08-17] MEDS: MORPHINE SULFATE (*CRX) 4 MG/ML INJ IV PUSH (02:15)
[2021-08-17] MEDS: ASPIRIN 81 MG CHEWABLE TABLET 324 MG PO (02:23)
[2021-08-17 03:47] VITALS: PULSE 78
--- NOTE | 2021-08-17 03:49 | PC.NURSE ---
pt drove himself to the ER. will let pt wait in the room until he feels able to drive home safely after getting Morphine and Valium IVP. will re-assess in 1hr
[2021-08-17 04:13] VITALS: BP 128/81; PULSE 76; RESP 18; O2SAT 98
== END 2021-08-17 04:16 | disposition home or self-care (01) ==
PROVIDERS: Emergency Provider Emergency Medicine; PCP Internal Medicine
DX: M62.830 Muscle spasm of back (principal); K21.9 Gastro-esophageal reflux disease without esophagitis
CPT/HCPCS: 36415; 71046; 80053; 83690; 84484; 85025; 85610; 85730; 93005; 96374; 96375; 99284; A9270; J1885; J2270; J3360

== ENCOUNTER 2021-09-16 01:21 | Day surgery (SDC) | payer OTHER, SELFPAY ==
[2021-09-03 13:18] VITALS: BMI 25.9
[2021-09-16 09:35] VITALS: BP 138/84; PULSE 74; RESP 18; TEMP 36.2; O2SAT 100
[2021-09-16] MEDS: LACTATED RINGERS 1,000 ML 150 ML IV CONT (09:46)
--- NOTE | 2021-09-16 10:09 | WPDANESEPPF ---
Anes - Initial Pre Proc Eval Procedure: Operation Date: 09/16/21 11:00 Proposed Procedures p Esophagogastroduodenoscopy - Carlos Worthy MD Date/Time: 09/16/21 10:09 Surgeon: Carlos Worthy MD Pre Op Diagnosis: GERD Patient Data Age: 41 Gender: M Height: 1.88 m Weight: 93.2 kg Last Vital Signs Temp 97.1 F L 09/16/21 09:35 Pulse 74 09/16/21 09:35 Resp 18 09/16/21 09:35 BP 138/84 09/16/21 09:35 Pulse Ox 100 09/16/21 09:35 Allergies Allergy/AdvReac Type Severity Reaction Status Date / Time No Known Allergies Allergy Mild Verified 09/16/21 09:34 Home Medications Medication Instructions Recorded Confirmed Type cyclobenzaprine 10 mg PO TID PRN #14 tablet 06/17/21 09/03/21 Rx pantoprazole 40 mg tablet,delayed 40 mg PO QAM 30 Days #90 tablet 08/04/21 09/03/21 Rx release diclofenac potassium 50 mg PO TID PRN #21 tablet 08/17/21 09/03/21 Rx orphenadrine citrate 100 mg PO Q12H PRN #20 tablet 08/17/21 09/03/21 Rx Patient hx anesthesia problems: none Family hx anesthesia problems: none Results Review: All pre-operative results and documents have been reviewed as part of the pre-operative evaluation. [facility] Past Medical History Medical History Acne rosacea Chronic GERD Depression with anxiety Family History Family History Grandparent Acute myocardial infarction, Onset Age: 74 Family history unknown, Onset Age: 84 Mother Family history of chronic obstructive pulmonary disease Father Malignant neoplasm of prostate Other High cholesterol Social History Social History Smoking status: Never smoker Tobacco type: cigarettes Second hand tobacco smoke exposure: No Alcohol intake: never Alcohol use details: once a month Substance use: never Substance use type: does not use Other substance usage details: once a month - edibles Living arrangements: alone Spiritual care concerns: No Anes - Eval Final PreProcedure Day of Procedure 09/16/21 10:09 Patient weight: overweight Heart: regular rate and rhythm Lungs: clear to auscultation Airway: Mallampati scale class II (poor dentition) Neurological: alert and oriented Last oral intake: >/= 8 hours ASA classification: II Emergent: no Anesthetic plan: proceed Anesthesia type and monitoring: general GIVS and standard monitoring Results Review: All pre-operative results and documents have been reviewed as part of the pre-operative evaluation. Informed Consent: The patient's anesthetic plan and its attendant risks and benefits were discussed with the patient/family/POA. Questions were solicited and answers provided to the satisfaction of the patient/family/POA.
--- NOTE | 2021-09-16 10:16 | PM.HPGS ---
History of Present Illness History of Present Illness Consent: Risks, benefits, and alternatives have been discussed and questions answered. Patient agrees to proceed with procedure. Chief complaint: GERD Narrative: Mychal Holly is a 41 year old male with gerd on pantoprazole for several months but sometimes breakthrough, never had egd. Review of Systems Constitutional: Constitutional: Denies headache(s) and Denies weakness Eyes: Eyes: Denies blurry vision ENT: Reports Normal hearing present, Denies headache(s) and Denies neck pain Cardiovascular: Cardiovascular: Denies chest pain and Denies dyspnea Respiratory: Respiratory: Denies dyspnea Gastrointestinal: Gastrointestinal: Reports no additional gastrointestinal complaints Genitourinary: Genitourinary: Denies dysuria Musculoskeletal: Musculoskeletal: Denies neck pain Integumentary/Breasts: Skin/Breast: Denies dry skin Neurologic: Reports Normal hearing present, Denies headache(s) and Denies weakness Psychiatric: Psychiatric: Denies anxiety Endocrine: Endocrine: Denies change in body appearance Hematologic/Lymphatic: Hematologic/Lymphatic: Denies easy bleeding Allergic/Immunologic: Allergic/Immunologic: Denies urticaria PMFSH Past Medical History Medical History Acne rosacea Chronic GERD Depression with anxiety Family History Family History Grandparent Acute myocardial infarction, Onset Age: 74 Family history unknown, Onset Age: 84 Mother Family history of chronic obstructive pulmonary disease Father Malignant neoplasm of prostate Other High cholesterol Social History Social History Smoking status: Never smoker Tobacco type: cigarettes Second hand tobacco smoke exposure: No Alcohol intake: never Alcohol use details: once a month Substance use: never Substance use type: does not use Other substance usage details: once a month - edibles Living arrangements: alone Spiritual care concerns: No Meds Home Medications and Allergies Home Medications Medication Instructions Recorded Confirmed Type cyclobenzaprine 10 mg PO TID PRN #14 tablet 06/17/21 09/03/21 Rx pantoprazole 40 mg tablet,delayed 40 mg PO QAM 30 Days #90 tablet 08/04/21 09/03/21 Rx release diclofenac potassium 50 mg PO TID PRN #21 tablet 08/17/21 09/03/21 Rx orphenadrine citrate 100 mg PO Q12H PRN #20 tablet 08/17/21 09/03/21 Rx Allergies Allergy/AdvReac Type Severity Reaction Status Date / Time No Known Allergies Allergy Mild Verified 09/16/21 09:34 Vital Signs Vital Signs - 24 hr 09/16/21 09:35 Temperature 97.1 F L Pulse Rate 74 Respiratory Rate 18 Blood Pressure 138/84 Pulse Oximetry 100 Exam Const: General: comfortable and no acute distress HENMT: General nose exam: Normal nares present Eyes: General: appearance normal, both eyes and all related structures Neck: Neck: no JVD Resp: Auscultation: clear to auscultation bilaterally Cardio: Rate: regular rate Rhythm: regular rhythm GI: Inspection: non-distended GI Palp: Yes Soft to palpation Skin: General skin exam: normal color Neuro: General: gait normal Speech: normal speech Extrem: General: normal to inspection Psych: Mental Status: mental status grossly normal Assessment and Plan Assessment and plan (1) GERD without esophagitis: Code(s): K21.9 - Gastro-esophageal reflux disease without esophagitis Status: Acute Assessment and Plan: egd with bx, already on ppi
[2021-09-16 10:32] VITALS: BP 135/78; PULSE 76; RESP 26; O2SAT 100
[2021-09-16 10:42] VITALS: BP 131/75; PULSE 74; RESP 23; O2SAT 100
[2021-09-16 10:52] VITALS: BP 136/76; PULSE 67; RESP 17; O2SAT 100
== END 2021-09-16 11:20 | disposition home or self-care (01) ==
PROVIDERS: PCP Family Medicine; Visit Provider Internal Medicine Gastroenterology
PROC: 0DJ08ZZ Inspection of Upper Intestinal Tract, Via Natural or Artificial Opening Endoscopic (ICD-10-PCS; CPT 43235; principal; 2021-09-16 11:00)
DX: K21.9 Gastro-esophageal reflux disease without esophagitis (principal); K20.90 Esophagitis, unspecified without bleeding; K29.70 Gastritis, unspecified, without bleeding; L71.9 Rosacea, unspecified; F32.A Depression, unspecified; F41.9 Anxiety disorder, unspecified
CPT/HCPCS: 43239; 88305; J2704; J7120

== ENCOUNTER 2022-02-16 16:14 | Outpatient (CLI) | payer OTHER, SELFPAY | END 2022-02-16 16:15 | disposition home or self-care (01) | LOC: ANHGOSHLAB 16:15 | PROVIDERS: PCP Family Medicine; Visit Provider Family Medicine | DX: Z12.2 Encounter for screening for malignant neoplasm of respiratory organs (principal); Z80.42 Family history of malignant neoplasm of prostate | CPT/HCPCS: 36415; 84153; G0103 ==

== ENCOUNTER 2022-08-18 19:17 | Outpatient (NON) | payer OTHER, SELFPAY | END 2022-08-18 19:18 | disposition home or self-care (01) | LOC: ANHLAB 19:19 | PROVIDERS: PCP Family Medicine; Visit Provider Nurse Practitioner | DX: R31.9 Hematuria, unspecified (principal) | CPT/HCPCS: 87086 ==

== ENCOUNTER 2022-08-27 15:24 | Outpatient (CLI) | payer OTHER, SELFPAY ==
[2022-08-27 19:24] LABS: Hematocrit 43.1 % (42.0-52.0); Hemoglobin 14.3 g/dL (14.0-18.0); Mean Corpuscular HGB Conc 33.2 g/dl (32-36); Mean Corpuscular Hemoglobin 28.3 pg (26-34); Mean Corpuscular Volume 85.3 fl (80-100); Mean Platelet Volume 11.6 fl (7.4-10.4); Platelet Count Result 215 k/mm3 (150-375); Red Blood Count 5.05 M/mm3 (4.6-6.20); Red Cell Distribution Width 13.9 % (11.5-14.5); White Blood Count 6.2 K/mm3 (4.5-10.0)
[2022-08-27 19:55] LABS: Alanine Aminotransferase 34 U/L (6-50); Albumin Level 4.5 g/dL (3.5-5.1); Alkaline Phosphatase 70 U/L (38-126); Anion Gap 4 mmol/L (8-16); Aspartate Amino Transferase 33 U/L (17-59); Bilirubin,Total 0.5 mg/dL (0.2-1.3); Blood Urea Nitrogen 14 mg/dL (9-20); Carbon Dioxide 31 mmol/L (22-30); Chloride 98 mmol/L (98-107); Cholesterol 154 mg/dL (0-200); Estimated Glomerular Filt Rate > 60; Glucose 86 mg/dL (65-110); HDL Direct 35 mg/dL; Potassium 3.7 mmol/L (3.4-5.0); Sodium 133 mmol/L (137-145); Triglycerides 50 mg/dL (<150)
[2022-08-27 20:06] LABS: LDL Cholesterol Direct 99 mg/dL
== END 2022-08-27 15:25 | disposition home or self-care (01) ==
LOC: ANHGOSHLAB 15:26
PROVIDERS: PCP Family Medicine; Visit Provider Nurse Practitioner
DX: Z13.29 Encounter for screening for other suspected endocrine disorder (principal); E78.2 Mixed hyperlipidemia; Z13.6 Encounter for screening for cardiovascular disorders
CPT/HCPCS: 36415; 80053; 80061; 84443; 85027

== ENCOUNTER 2023-02-03 07:14 | Day surgery (SDC) | payer OTHER, SELFPAY ==
[2023-01-14 10:31] VITALS: BMI 26.9
--- NOTE | 2023-02-02 15:31 | P.PNAN_ITS ---
Anes - Initial Pre Proc Eval Procedure: Operation Date: 02/03/23 09:00 Proposed Procedures p Diagnostic Colonoscopy - Carlos Worthy MD Date/Time: 02/02/23 15:31 Surgeon: Carlos Worthy MD Pre Op Diagnosis: Hemorrhage of Anus and Rectum Patient Data Age: 42 Gender: M Height: 1.88 m Weight: 95 kg Allergies Allergy/AdvReac Type Severity Reaction Status Date / Time No Known Allergies Allergy Mild Verified 02/03/23 07:49 Home Medications Medication Instructions Recorded Confirmed Type buspirone 5 mg tablet 5 mg PO ONCE 04/02/22 02/03/23 History pantoprazole 40 mg tablet,delayed 40 mg PO QAM 30 days #90 tabs 06/07/22 02/03/23 Rx release minoxidil 5 % topical foam See Rx Instructions topical 11/29/22 02/03/23 Rx .COMPLEX #60 grams hydrocortisone 2.5 % topical cream 1 applic RECTAL DAILY PRN 01/07/23 02/03/23 Rx with perineal applicator hemorrhoids #30 grams (Anusol-HC) Patient hx anesthesia problems: none Family hx anesthesia problems: none Results Review: All pre-operative results and documents have been reviewed as part of the pre- operative evaluation. [facility] Past Medical History Medical History (Updated 02/02/23 @ 15:32 by Chuck Dueñas MD) Acne rosacea Chronic GERD Depression with anxiety Mixed hyperlipidemia Sleep apnea in adult Surgical History Surgical History [place] teeth extracted Family History Family History Grandparent Acute myocardial infarction, Onset Age: 74 Family history unknown, Onset Age: 84 Mother Family history of chronic obstructive pulmonary disease Father Malignant neoplasm of prostate Other Cerebrovascular accident High cholesterol Social History Social History Smoking status: Never smoker Tobacco type: cigarettes Second hand tobacco smoke exposure: No Alcohol intake: current Drinks per week: 2 Alcohol use details: once a month Substance use: current Substance use type: marijuana Other substance usage details: edible 1 per month Living arrangements: with family Occupation/Education: occupation 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 Informed Consent: The patient's anesthetic plan and its attendant risks and benefits were discussed with the patient/family/POA. Questions were solicited and answers provided to the satisfaction of the patient/family/POA.
[2023-02-03 07:51] VITALS: BP 150/96; PULSE 72; RESP 20; TEMP 36.8; O2SAT 100
[2023-02-03] MEDS: LACTATED RINGERS 1,000 ML 150 ML IV CONT (07:58)
--- NOTE | 2023-02-03 09:07 | PM.HPGS ---
History of Present Illness History of Present Illness Consent: Risks, benefits, and alternatives have been discussed and questions answered. Patient agrees to proceed with procedure. Chief complaint: Hemorrhage of Anus and Rectum Narrative: Mychal Holly is a 42 year old male with intermittent rectal bleeding, never had colonoscopy Review of Systems Constitutional: Constitutional: Denies headache(s) and Denies weakness Eyes: Eyes: Denies blurry vision ENT: Reports Normal hearing present, Denies headache(s) and Denies neck pain Cardiovascular: Cardiovascular: Denies chest pain and Denies dyspnea Respiratory: Respiratory: Denies dyspnea Gastrointestinal: Gastrointestinal: Reports no additional gastrointestinal complaints Genitourinary: Genitourinary: Denies dysuria Musculoskeletal: Musculoskeletal: Denies neck pain Integumentary/Breasts: Skin/Breast: Denies dry skin Neurologic: Reports Normal hearing present, Denies headache(s) and Denies weakness Psychiatric: Psychiatric: Denies anxiety Endocrine: Endocrine: Denies change in body appearance Hematologic/Lymphatic: Hematologic/Lymphatic: Denies easy bleeding Allergic/Immunologic: Allergic/Immunologic: Denies urticaria PMFSH Past Medical History Medical History (Updated 02/02/23 @ 15:32 by Chuck Dueñas MD) Acne rosacea Chronic GERD Depression with anxiety Mixed hyperlipidemia Sleep apnea in adult Surgical History Surgical History [place] teeth extracted Family History Family History Grandparent Acute myocardial infarction, Onset Age: 74 Family history unknown, Onset Age: 84 Mother Family history of chronic obstructive pulmonary disease Father Malignant neoplasm of prostate Other Cerebrovascular accident High cholesterol Social History Social History Smoking status: Never smoker Tobacco type: cigarettes Second hand tobacco smoke exposure: No Alcohol intake: current Drinks per week: 2 Alcohol use details: once a month Substance use: current Substance use type: marijuana Other substance usage details: edible 1 per month Living arrangements: with family Occupation/Education: occupation Additional occupation/education comments: [employer] Spiritual care concerns: No Meds Home Medications and Allergies Home Medications Medication Instructions Recorded Confirmed Type buspirone 5 mg tablet 5 mg PO ONCE 04/02/22 02/03/23 History pantoprazole 40 mg tablet,delayed 40 mg PO QAM 30 days #90 tabs 06/07/22 02/03/23 Rx release minoxidil 5 % topical foam See Rx Instructions topical 11/29/22 02/03/23 Rx .COMPLEX #60 grams hydrocortisone 2.5 % topical cream 1 applic RECTAL DAILY PRN 01/07/23 02/03/23 Rx with perineal applicator hemorrhoids #30 grams (Anusol-HC) Allergies Allergy/AdvReac Type Severity Reaction Status Date / Time No Known Allergies Allergy Mild Verified 02/03/23 07:49 Vital Signs Vital Signs - 24 hr 02/03/23 07:51 Temperature 98.3 F Pulse Rate 72 Respiratory Rate 20 Blood Pressure 150/96 H Pulse Oximetry 100 Oxygen Delivery Room Air Exam Const: General: comfortable and no acute distress HENMT: Face/Nose/Sinus: Normal nares present Eyes: General: appearance normal, both eyes and all related structures Neck: Neck: no JVD Resp: Auscultation: clear to auscultation bilaterally Cardio: Rate: regular rate Rhythm: regular rhythm GI: Inspection: non-distended GI Palp: Yes Soft to palpation Skin: General skin exam: normal color Neuro: General: gait normal Speech: normal speech Extrem: General: normal to inspection Psych: Mental Status: mental status grossly normal Assessment and Plan Assessment and plan (1) Rectal bleeding: Code(s):
[2023-02-03 09:35] VITALS: BP 113/61; PULSE 75; RESP 20; O2SAT 99
[2023-02-03 09:45] VITALS: BP 120/64; PULSE 73; RESP 14; O2SAT 99
[2023-02-03 09:55] VITALS: BP 118/82; PULSE 66; RESP 16; O2SAT 100
--- NOTE | 2023-02-03 10:04 | WPDANESPN ---
Anes - Prog Note Post-Op Date/Time: 02/03/23 10:04 Cardiovascular status: normal Respiratory status: normal Airway patency: baseline Mental status: baseline Post-Op hydration status: normal Vital Signs: Last Vital Signs Temp 36.8 C 02/03/23 07:51 Pulse 66 02/03/23 09:55 Resp 16 02/03/23 09:55 BP 118/82 02/03/23 09:55 Pulse Ox 100 02/03/23 09:55 O2 Del Method Room Air 02/03/23 09:55 Pain Score (VAS): 0 I/O: Intake & Output 02/02/23 02/03/23 02/03/23 23:59 07:59 15:59 Intake Total 750 Balance 750 Post-procedural complaints: none Patient Feedback: Patient satisfied with anesthetic care.
== END 2023-02-03 10:12 | disposition home or self-care (01) ==
PROVIDERS: PCP Family Medicine; Visit Provider Internal Medicine Gastroenterology
PROC: 0DJD8ZZ Inspection of Lower Intestinal Tract, Via Natural or Artificial Opening Endoscopic (ICD-10-PCS; CPT 45378; principal; 2023-02-03 09:00)
DX: K62.5 Hemorrhage of anus and rectum (principal)
CPT/HCPCS: 45378

== ENCOUNTER 2024-02-28 16:35 | Outpatient (CLI) | payer OTHER, SELFPAY ==
[2024-02-28 17:08] LABS: Alanine Aminotransferase 26 U/L (6-50); Aspartate Amino Transferase 35 U/L (17-59)
== END 2024-02-28 16:36 | disposition home or self-care (01) ==
LOC: ANHLAB 16:37
PROVIDERS: PCP Family Medicine; Visit Provider Podiatrist Foot & Ankle Surgery
DX: B35.1 Tinea unguium (principal)
CPT/HCPCS: 36415; 84450; 84460

== ENCOUNTER 2024-08-13 07:53 | Outpatient (CLI) | payer OTHER, SELFPAY ==
--- NOTE | 2024-09-03 10:31 | P.SLEEP_ITS ---
Sleep Study Date of Study: 08/13/24 Ordering Provider: Jocelyn Marti MD Interpreting Physician: Kalie Can DO Sleep Study Type: Split Polysomnogram Height: 1.88 m Weight: 128.82 kg Body Mass Index: 36.4 Neck Circumference (inches): 19 Desha: 11 Reason for Sleep Study Daytime hypersomnia Sleep History The patient is a 44-year-old male who had a sleep study ordered by his primary care physician for evaluation of sleep apnea. The patient denies awakening from sleep short of breath. He occasionally awakens at night with heartburn, belching, or cough. He constantly snores loudly enough that others complain. He constantly has trouble sleeping when he has a cold. He denies waking up gasping for air throughout the night. He rarely has breathing problems at night observed by himself or others. He rarely sweats excessively at night. He rarely has heart palpitations or irregular heartbeats during the night. He occasionally falls asleep during the day and rarely falls asleep while driving. He denies sleep paralysis, cataplexy, and hypnagogic/hypnopompic hallucinations. He frequently has trouble at school or work due to sleepiness. He denies feeling afraid of going to sleep. He rarely has nightmares. He frequently remembers his dreams. He occasionally has thoughts racing through his mind. He frequently feels sad, depressed, and anxious. He frequently has muscular tension. He rarely notices parts of his body jerk. He denies kicking during the night. He denies having crawling and aching feelings in his legs. He rarely has leg pain during the night. He rarely grinds his teeth during sleep but never awakens with morning jaw pain. He is rarely bothered by pain during the day and rarely awakened by pain during the night. He occasionally wakes up feeling stiff in the morning. He occasionally wakes up with sore or achy muscles. He occasionally wakes up with pain in the neck, spine, and other joints. He goes to bed at 10 p.m. on weekdays and at 9 p.m. on the weekends. It takes him 30 minutes to fall asleep. He wakes up 1 to 2 times throughout the night to adjust his position and is able to fall back asleep within a few seconds. He wakes up between 5:30 to 6 a.m. on weekdays and at 8 a.m. on the weekends. He typically gets 6 to 7 hours of sleep per night. He will stay in bed for 30 minutes after waking up in the morning. He currently lives alone during the week, but his partner will stay with him during the weekends. He denies consuming any caffeinated beverages within 2 hours of bedtime. He denies engaging in physical exercise before bedtime. He will read before falling asleep. He denies watching television before falling asleep. He will take naps in the afternoon or the evening, but they are not refreshing. He consumes 2 cups of coffee every morning. He consumes 1 to 2 alcoholic beverages per week. He denies tobacco and recreational drug use. FORMERLY [facility], [facility] Past Medical History Medical History Chronic GERD Acne rosacea Mixed hyperlipidemia Sleep apnea in adult Depression with anxiety Surgical History Surgical History [place] teeth extracted Family History Family History Grandparent Acute myocardial infarction, Onset Age: 74 Family history unknown, Onset Age: 84 Mother Family history of chronic obstructive pulmonary disease Father Malignant neoplasm of prostate Other Cerebrovascular accident High cholesterol Social History Social History Smoking status: Never smoker Tobacco type: cigarettes Second hand tobacco smoke exposure: No Alcohol intake: current Drinks per week: 2 Alcohol use details: once a month Substance use: current Substance use type: marijuana Other substance usage details: edible 1 per month Living arrangements: with family Occupation/Education: occupation Additional occupation/education comments: [employer] Spiritual care concerns: No Medications Home Medications ?Medication ?Instructions ?Recorded ?Confirmed ?Type minoxidil 5 % topical foam See Rx Instructions topical 11/29/22 04/30/24 Rx .COMPLEX #60 grams sildenafil 25 mg tablet 25 mg PO DAILY PRN sexual activity 12/06/23 04/30/24 Rx #30 tabs pantoprazole 40 mg tablet,delayed 40 mg PO QAM #30 tabs 04/30/24 04/30/24 Rx release Sleep Procedure A full night split study using the [employer] multi-channel system recorded the standard physiologic parameters including EEG, EOG, submentalis EMG, anterior tibialis EMG, EKG, body position, nasal and oral airflow using nasal pressure sensor and thermistor.? Respiratory parameters of chest and abdominal movements were recorded with Respiratory Inductance Plethysmography belts. Oxygen saturation was recorded by pulse oximetry. Video monitoring was also performed. Sleep stages, periodic limb movements, and EEG arousals were scored in 30 second epochs according to the criteria of the AASM Scoring Manual. The Apnea-Hypopnea Index was calculated using [facility] guidelines for definition of hypopnea with 4% O2 desaturations while scoring respiratory events. Sleep Architecture During the diagnostic portion of the study, the total recording time was 255.4 minutes. The total sleep time was 144.5 minutes. Sleep latency was 20.4 minutes.? REM sleep was not achieved during this portion fo the study. Sleep Efficiency was 56.6%. The patient had 49 awakenings for an awakening index of 20.3. Wake after sleep onset time was 90.5 minutes. The patient spent 53.0 minutes, 36.7% of total sleep time in Stage N1. The patient spent 50.0 minutes, 34.6% in Stage N2. The patient spent 41.5 minutes, 28.7% in Stage N3. The patient spent 0.0 minutes, 0.0% in Stage REM sleep. At 01:35:48 AM the patient was placed on PAP treatment and was titrated at pressures ranging from 5 cm H20 up to 7 cm H20. During the treatment portion of the study, the total recording time was 293.1 minutes.? The total sleep time was 184.0 minutes. Sleep latency was 89.5 minutes. REM latency was 37.5 minutes. Sleep Efficiency was 62.8%. Wake after Sleep Onset time was 20.0 minutes. The patient spent 21.0 minutes, 11.4% of total sleep time in Stage N1. The patient spent 50.5 minutes, 27.4% in Stage N2. The patient spent 43.0 minutes, 23.4% in Stage N3. The patient spent 69.5 minutes, 37.8% in Stage REM. Respiratory Analysis During the diagnostic portion of the study, the patient had 11 hypopneas, 58 obstructive apneas, 7 mixed apneas, and 6 central apneas for an overall Apnea Hypopnea Index of 33.6 events per hour. The REM Apnea Hypopnea Index was 0. The NREM Apnea Hypopnea Index was 33.6. The patient had a Central Apnea Hypopnea Index of 2.5. There was no evidence of Chuck-López Respirations. During the treatment portion of the study, the patient had 4 central apneas for an overall Apnea Hypopnea Index of 1.3 events per hour. The REM Apnea Hypopnea Index was 0. The NREM Apnea Hypopnea Index was 2.1. The patient had a Central Apnea Hypopnea Index of 1.3. There was no evidence of Chuck-López Respirations. The patient was started on CPAP 5 cm H2O and titrated to CPAP 7 cm H2O due to hypopneas. The patient was able to fall asleep starting on CPAP 5 cm H2O. The patient was able to achieve REM sleep starting on CPAP 6 cm H2O. The patient was able to achieve a residual AHI less than 5 with both NREM and REM sleep in the supine position on the final two pressures. On CPAP 6 cm H2O, the patient spent 48 minutes in NREM and 7 minutes in REM with 2 hypopneas, resulting in an AHI of 2.2. On CPAP 7 cm H2O, the patient spent 45 minutes in NREM and 62.5 minutes in REM with 2 hypopneas, resulting in an AHI of 1.1. The patient had a sleep efficiency of 95.7% on 6 cm H2O and 93.9% on 7 cm H2O. Arousals During the diagnostic portion of the study, there were a total of 114 arousals for an arousal index of 47.3.? There were 31 respiratory arousals for an index of 12.9. There were 0 periodic limb movement arousals for an index of 0.? There were 6 isolated limb movement arousals for an index of 2.5. There were 77 spontaneous arousals for an index of 32.0. During the treatment portion of the study, there were a total of 38 arousals for an index of 12.4.? There were 2 respiratory arousals for an index of 0.7. There were 0 periodic limb movement arousals for an index of 0.? There were 11 isolated limb movement arousals for an index of 3.6. There were 25 spontaneous arousals for an index of 8.2. Periodic Limb Movements During the diagnostic portion of the study, the patient had 18 isolated limb movements with an index of 7.5. The patient had 0 periodic limb movements with an index of 0. The patient had a total of 18 limb movements with a total limb movement index of 7.5. During the treatment portion of the study, the patient had 45 isolated limb movements with an index of 14.7. The patient had 17 periodic limb movements with an index of 5.5. The patient had a total of 62 limb movements with a total limb movement index of 20.2. Oximetry Data During the diagnostic portion of the study, the patient had an average oxygen saturation of 95.2% in wake with a minimum oxygen saturation of 86% and a maximum oxygen saturation of 99%. The patient had an average oxygen saturation of 94.1% in sleep with a minimum oxygen saturation of 88.0% and a maximum oxygen saturation of 99.0%. The patient had 68 oxygen desaturations resulting in an Oxygen Desaturation Index of 28.2. The patient spent 0.2 minutes, 0.1% of total sleep time with an oxygen saturation less than 88%. During the treatment portion of the study, the patient had an average oxygen saturation of 95.8% in wake with a minimum oxygen saturation of 90.0% and a maximum oxygen saturation of 99.0%. The patient had an average oxygen saturation of 94.9% in sleep with a minimum oxygen saturation of 92.0% and a maximum oxygen saturation of 100.0%. The patient had 18 oxygen desaturations resulting in an O xygen Desaturation Index of 5.9. The patient spent 0 minutes of total sleep time with an oxygen saturation less than 88%. Snoring Profile Moderate snoring was present during the baseline portion of the study. The snoring resolved once the patient was started on PAP therapy. Cardiac Profile The EKG lead showed normal sinus rhythm. No arrhythmias or premature beats were seen. During the diagnostic portion of the study, the average pulse rate was 70.1 bpm.? The minimum pulse rate was 58.0 bpm. The maximum pulse rate was 93.0 bpm. During the treatment portion of the study, the average pulse rate was 68.7 bpm.? The minimum pulse rate was 56.0 bpm. The maximum pulse rate was 93.0 bpm. EEG Profile No signs of seizure activity seen. Assessment and Plan Assessment and Plan (1) BECKY (obstructive sleep apnea): Code(s): G47.33 - Obstructive sleep apnea (adult) (pediatric) Status: Acute Assessment and Plan: In the baseline portion of the study, the patient had an overall AHI of 33.6 with desaturation down to 88%. This is consistent with severe sleep apnea. The patient was started CPAP 5 cm H2O and titrated to CPAP 7 cm H2O. The patient's sleep apnea resolved on the final pressure setting with a high sleep efficiency. I recommend that the patient be prescribed CPAP 7 cm H2O, size medium F&P Solo nasal mask, CPAP filters/tubing and heated humidity. This should be used with all episodes of sleep.? Compliance should be reviewed within 31-90 days of starting therapy for usage greater than 4 hours per night greater than 70% of the nights. The patient should be asked about symptoms such as?excessive daytime sleepiness, quality of sleep, decreased nocturia, increased?mental functioning such as memory, mood, and concentration. Data The data obtained during this sleep study is adequate for interpretation. Certification This sleep study has been reviewed by a board certified sleep medicine physician.
[2024-09-04 14:48] VITALS: BMI 36.4
== END 2024-08-14 07:14 | disposition home or self-care (01) ==
LOC: ANHCSM 07:54
PROVIDERS: PCP Family Medicine; Visit Provider Family Medicine
DX: G47.33 Obstructive sleep apnea (adult) (pediatric) (principal); G47.30 Sleep apnea, unspecified
CPT/HCPCS: 95811

== ENCOUNTER 2024-10-10 10:50 | Outpatient (CLI) | payer OTHER, SELFPAY ==
[2024-10-10 11:25] LABS: Basophils Absolute Auto 0.1 K/mm3 (0.0-0.1); Basophils Percent Auto 0.8 % (0.2-1.2); Eosinophils Absolute Auto 0.1 K/mm3 (0-0.3); Eosinophils Percent Auto 1.2 % (0-4.4); Hematocrit 40.6 % (42.0-52.0); Immature Granulocyte Absolute 0.04 K/mm3 (0.00-0.031); Immature Granulocyte Percent A 0.5 % (0-0.5); Immature Platelet Fraction Pct 4.5 % (0.9-11.2); Lymphocytes Absolute Auto 1.77 K/mm3 (0.9-3.2); Mean Corpuscular HGB Conc 29.6 g/dl (32-36); Mean Corpuscular Hemoglobin 19.7 pg (26-34); Mean Corpuscular Volume 66.7 fl (80-100); Monocytes Absolute Auto 0.4 K/mm3 (0.1-0.6); Monocytes Percent Auto 5.8 % (2.6-8.5); Neutrophils Percent Auto 67.7 % (45.5-73.1); Platelet Count Result 297 k/mm3 (150-375); Red Blood Count 6.09 M/mm3 (4.6-6.20); Red Cell Distribution Width 21.9 % (11.5-14.5); White Blood Count 7.4 K/mm3 (4.5-10.0)
[2024-10-10 11:40] LABS: Alanine Aminotransferase 30 U/L (6-50); Albumin Level 4.7 g/dL (3.5-5.1); Alkaline Phosphatase 90 U/L (38-126); Anion Gap 12 mmol/L (4-12); Aspartate Amino Transferase 32 U/L (17-59); Bilirubin,Total 0.5 mg/dL (0.2-1.3); Blood Urea Nitrogen 12 mg/dL (9-20); Calcium 9.4 mg/dL (8.4-10.2); Carbon Dioxide 26 mmol/L (22-30); Chloride 103 mmol/L (98-107); Cholesterol 214 mg/dL (0-200); Estimated Glomerular Filt Rate > 60; Glucose 88 mg/dL (65-110); HDL Direct 31 mg/dL; Potassium 4.4 mmol/L (3.4-5.0); Sodium 141 mmol/L (137-145); Triglycerides 146 mg/dL (<150)
[2024-10-10 11:48] LABS: Anisocytosis 1+; Hypochromasia 1+; Platelet Estimate Adequate (Adequate); Schistocytes None Seen
[2024-10-10 11:50] LABS: LDL Cholesterol Direct 133 mg/dL
--- OUTSIDE RECORDS SUMMARY | 2024-10-10 12:35 | XMS_ITS | Clinical Summary ---
Author Organization [address] Address [address] [place] [id number] Care Team Providers Care Diagnostic Tech Name Role Phone Sandeep Capellan DO Primary Care Provider [phone] Allergies No known active allergies Medications ketorolac (TORADOL) 10 mg tabletIndication s:Severe Pain Take 1 tablet (10 mg total) by mouth every 6 (six) hours as needed for pain 20 tablet 12/19/2023 Active cyclobenzaprine (FLEXERIL) 10 mg tabletIndication s:Muscle Spasm Take 1 tablet (10 mg total) by mouth 2 (two) times a day as needed for muscle spasms 20 tablet 12/19/2023 Active Social History Tobacco Use Types Packs/Day Years Used Date Smoking Tobacco: Never Assessed Personal Safety Answer Date Recorded Getting School Help Needed Not on file 09/24 Sex and Gender Information Value Date Recorded Sex Assigned at Not on file 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 Gender Identity Not on file Sexual Orientation Not on file Last Filed Vital Signs Vital Sign Reading Time Taken Comments Blood Pressure 134/89 12/19/2023 9:51 AM CDT Pulse 75 12/19/2023 9:51 AM CDT Temperature 36.6 C (97.9 F) 12/19/2023 7:00 AM CDT Respiratory Rate 18 12/19/2023 9:51 AM CDT Oxygen Saturation 100% 12/19/2023 9:51 AM CDT Inhaled Oxygen Concentration - - Weight 124.4 kg (274 lb 4 oz) 12/19/2023 7:00 AM CDT Height 188 cm (6' 2 ) 12/19/2023 7:00 AM CDT Body Mass Index 35.21 12/19/2023 7:00 AM CDT Plan of Treatment Health Maintenance Due Date Last Done Comments Depression Screening 1981 Hepatitis C Screening 1981 Varicella Vaccines (1 of 2 - 13+ 2-dose series) 1994 Regular Well Visit/Exam 18-64 1999 HPV Vaccines (2 - 3-dose SCDM series) 12/12/2021 11/14/2021 Covid-19 Vaccine ( season) 2024 04/18/2022, 06/23/2021, 10/21/2020, Additional history exists Influenza Vaccine (#1) 2024 , 07/21/2021, 06/29/2019, Additional history exists DTaP/Tdap/Td Vaccine (2 - Td or Tdap) 12/06/2030 12/06/2020, 05/08/1996 Hepatitis B Screening Completed 12/23/2008 Pneumococcal vaccine <65 Aged Out No longer eligible based on patient's age to complete this topic Insurance [facility] CHOICE PLUS Care Teams Diagnostic Tech Relationship Specialty Start Date End Date Sandeep Capellan DO [facility] [address] [address] PCP - General Family Medicine 12/19/23
--- OUTSIDE RECORDS SUMMARY | 2024-10-10 12:35 | XMS_ITS | Referral Summary ---
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
--- OUTSIDE RECORDS SUMMARY | 2024-10-10 12:35 | XMS_ITS | Clinical Summary ---
Author Organization [facility] Address [address] [facility] [address] [facility] Attn: Epic Prelude ADT [place] [id number] Care Team Providers Care Electrician'S Helper Name Role Phone Unavailable Primary Care Provider Unavailabl e Allergies No known active allergies Medications ARIPiprazole (ABILIFY) 2 mg tablet Take 1 Tablet (2 mg) by mouth daily. 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 300 mL 08/01/2023 7:32 PM BRANDING MACHINE OPERATOR 4 Active lisdexamfetamine (Vyvanse) 20 mg capsule Take 1 Capsule (20 mg) by mouth daily in the morning. Max Daily Amount: 20 mg 30 Capsule 4 Active dextroamphetamine sulfate (DEXTROSTAT) 10 mg Tablet Take 1 Tablet (10 mg) by mouth daily in the morning and 1 tablet in the afternoon. 60 Tablet 08/26/2023 2:51 PM BRANDING MACHINE OPERATOR 4 Active sildenafiL (VIAGRA) 25 mg tablet Take 1 Tablet (25 mg) by mouth 1 time daily as needed for sexual activity 30 minutes to 4 hours before activity. 30 Tablet 12/07/2023 5:12 PM CDT 4 Active cyclobenzaprine (FLEXERIL) 10 mg tablet Take 1 Tablet (10 mg) by mouth 2 times daily as needed for muscle spasms. 20 Tablet 01/05/2024 5:02 PM CDT 4 Active ketorolac tromethamine (TORADOL) 10 mg tablet Take 1 Tablet (10 mg) by mouth every 6 hours as needed for severe pain. 20 Tablet 01/05/2024 5:02 PM CDT 4 Active terbinafine HCL (LamISIL) 250 mg tablet Take 1 tablet by mouth daily 90 Tablet 04/30/2024 10:46 AM CDT 4 Active pantoprazole (PROTONIX) 40 mg Tablet, Delayed Release (E.C.) Take 1 Tablet (40 mg) by mouth daily in the morning. 30 Tablet 6 08/22/2024 2:25 PM BRANDING MACHINE OPERATOR 4 Active Encounters Date Type Department Care Team Description 10/03/2024 External Device Data [facility] Provider, Abstract 10/02/2024 External Device Data [facility] Provider, Abstract 09/04/2024 External Device Data [facility] Provider, Abstract 08/07/2024 External Device Data [facility] Provider, Abstract from Last 3 Months Social History Tobacco Use Types Packs/Day Years Used Date Smoking Tobacco: Never Assessed Sex and Gender Information Value Date Recorded Sex Assigned at Not on file Legal Sex Male 3:26 PM CDT Gender Identity Not on file Sexual Orientation Not on file Plan of Treatment Health Maintenance Due Date Last Done Comments DTAP/TDAP/TD VACCINES (1 - Tdap) 02/11/2000 HEPATITIS B VACCINES (1 of 3 - 19+ 3-dose series) 02/11/2000 INFLUENZA VACCINE (#1) 2024 HPV VACCINES Aged Out No longer eligi ble based on patient's age to complete this topic Insurance [employer] Member Subscriber Plan / Payer (Ef fective 2022-Present) Name:Mychal Holly Relation to Subscriber:Self Name:Mychal Holly Subscriber ID:Not on file Payer ID:Not on file Group ID:[id number] Type:RX Commercial Address: [address]
--- OUTSIDE RECORDS SUMMARY | 2024-10-10 12:37 | XMS_ITS | Clinical Summary ---
Author Organization [facility] Address [address] [place] [address] Care Team Providers Care Banjo Repairer Name Role Phone Unavailable Primary Care Provider Unavailabl e Source Comments [facility],non-owned Affiliates and Associated Physician Practices is amultiple site organization consisting of ambulatory clinics and hospital sitesin [place], [place], [place] and [place]. This disclosure is being madepursuant to the Care Everywhere program and may not contain all information available regarding this patient. Last updated 18.[facility] Allergies No known active allergies Social History Tobacco Use Types Packs/Day Years Used Date Smoking Tobacco: Never Assessed Sex and Gender Information Value Date Recorded Sex Assigned at Not on file Gender Identity Not on file Sexual Orientation Not on file Plan of Treatment Health Maintenance Due Date Last Done Comments LIPID TESTING 1981 HIV SCREENING 02/11/1996 HEPATITIS C SCREENING 02/06/1999 DTAP/TDAP/TD VACCINES (1 - Tdap) 02/11/2000 HEPATITIS B VACCINE (1 of 3 - 19+ 3-dose series) 02/11/2000 COVID-19 VACCINE ( - 2023-2 5 season) 2024 INFLUENZA VACCINE (#1) 2024 DEPRESSION SCREENING 07/25/2024 ZOSTER VACCINE (1 of 2) 2031 HIB VACCINE Aged Out No longer eligi ble based on patient's age to complete this topic HPV VACCINE Aged Out No longer eligi ble based on patient's age to complete this topic MENINGOCOCCAL (Group B) VACC INE SHARED DECISION-MAKING Aged Out No longer eligibl e based on patient's age to complete this topic MENINGOCOCCAL GROUPS A/C/Y/W VACCINE Aged Out No longer eligible b ased on patient's age to complete this topic PNEUMOCOCCAL VACCINE Aged Out No long er eligible based on patient's age to complete this topic
== END 2024-10-10 10:51 | disposition home or self-care (01) ==
LOC: ANHLAB 10:52
PROVIDERS: PCP Family Medicine; Visit Provider Family Medicine
DX: R53.83 Other fatigue (principal); E78.2 Mixed hyperlipidemia
CPT/HCPCS: 36415; 80053; 80061; 84443; 85025; 85055